=== PATIENT | male | born 1935 | race Two or more races ===

== ENCOUNTER 2020-11-02 17:22 | Inpatient (IN) | payer MEDICARE, BC ==
[~2020-11-02] VITALS: Ht 172.7 cm; Wt 64.0 kg
--- NOTE | 2020-11-02 17:40 | NUR ---
The patient JANIYA APA [id number] From [facility] "Ulcers/occluded RLE. Responsive to his name by opening eyes. Respiration regular and unlabored. Attached to the monitor.
[2020-11-02] MEDS ORDERED: CRAN3875 PO (18:03)
[2020-11-02] MEDS ORDERED: QUERCETIN PO (18:03)
[2020-11-02] MEDS ORDERED: METO25TA6 PO (18:03)
[2020-11-02] MEDS ORDERED: DIGO125T PO (18:03)
[2020-11-02] MEDS ORDERED: MAGN400O6 PO (18:03)
[2020-11-02] MEDS ORDERED: ASCO500C17 PO (18:03)
[2020-11-02] MEDS ORDERED: CHOL200013 PO (18:03)
[2020-11-02] MEDS ORDERED: INSU100V3 IJ (18:03)
[2020-11-02] MEDS ORDERED: MULT-447 PO (18:03)
[2020-11-02] MEDS ORDERED: APIX2.5T PO (18:03)
[2020-11-02] MEDS ORDERED: MAG30ORA PO (18:03)
[2020-11-02] MEDS ORDERED: DEXT15DR6 OP (18:03)
[2020-11-02] MEDS ORDERED: INSU100V7 SQ (18:03)
[2020-11-02] MEDS ORDERED: AMIN887L PO (18:03)
[2020-11-02] MEDS ORDERED: FERR325T23 PO (18:03)
[2020-11-02] MEDS ORDERED: ACET325T53 PO ×2 (18:03)
[2020-11-02] MEDS ORDERED: NA P133E RC (18:03)
--- NOTE | 2020-11-02 18:32 | NUR ---
COVID SWAB DONE AND SENT TO THE LAB
[2020-11-02 18:36] LABS: LYMPHOCYTES # (AUTO) 1.3 K/uL (0.8-4.8); MONOCYTES # (AUTO) 0.7 K/uL (0.1-1.30); NEUTROPHILS # (AUTO) 7.9 K/uL (1.8-8.9)
[2020-11-02 18:39] LABS: BASOPHILS # (AUTO) 0.1 K/uL (0.0-0.2); BASOPHILS % (AUTO) 0.6 % (0.0-2.0); EOSINOPHILS % (AUTO) 0.7 % (0.0-6.0); HEMATOCRIT 25 % (39-51); HEMOGLOBIN 8.2 g/dL (13.5-17.5); LYMPHOCYTES % (AUTO) 12.9 % (20.0-44.0); MEAN CORPUSCULAR HGB CONC 32 g/dl (31.0-36.0); MEAN CORPUSCULAR VOLUME 93 fL (80-96); MONOCYTES % (AUTO) 7.4 % (2.0-12.0); NEUTROPHILS % (AUTO) 78.4 % (43.0-81.0); PLATELET COUNT (AUTO) 436 K/uL (150-450); RED BLOOD CELL COUNT(AUTO) 2.73 MIL/uL (4.5-6.0); WHITE BLOOD COUNT (AUTO) 10.1 K/uL (4.3-11.0)
[2020-11-02 19:12] LABS: CALCIUM, SERUM 8.2 mg/dL (8.5-10.1); CARBON DIOXIDE 31 mmol/L (21-32); CHLORIDE 100 mmol/L (98-107); GLUCOSE 71 mg/dL (74-106); POTASSIUM 4.5 mmol/L (3.5-5.1); SODIUM SERUM 133 mmol/L (136-145); UREA NITROGEN, BLOOD 36 mg/dL (7-18)
--- NOTE | 2020-11-02 19:25 | NUR ---
ELLE DC, CURRENTLY SPEAKING WITH DR. SCHAFER.
[2020-11-02] MEDS ORDERED: IV NS 0.9% 500 ML BAG IV ONE ×2 (19:30→21:30)
[2020-11-02] MEDS ORDERED: VANCOMYCIN 1 GM in IV D5W 250 ML IV ONE (19:30)
--- NOTE | 2020-11-02 20:19 | NUR ---
ROOM 113-1
[2020-11-02] MEDS ORDERED: VANCOMYCIN 1 GM VIAL ONE (20:27)
--- NOTE | 2020-11-02 21:00 | NUR ---
Paged dr Watson to update about Pt being given 20mg of Cardizem for AFIb
--- NOTE | 2020-11-02 21:06 | NUR ---
gave report to Jayne Curran for jarod
--- NOTE | 2020-11-02 21:06 | NUR ---
Diandra munoz in [facility] - 11/02/20 at 2209 by KITA gave report to savita
[2020-11-02] MEDS ORDERED: ENOXAPARIN SODIUM 60 MG/0.6 ML DISP.SYRIN SQ STA (21:28)
[2020-11-02] MEDS ORDERED: DILTIAZEM HCL 50 MG IV IV ONE ×2 (21:30)
[2020-11-02] MEDS ORDERED: ENOXAPARIN SODIUM 60 MG/0.6 ML DISP.SYRIN SQ ONE (21:32)
[2020-11-02] MEDS ORDERED: DILTIAZEM HCL 50 MG IV ONE (21:33)
[2020-11-02] MEDS ORDERED: MAGNESIUM HYDROXIDE 30 ML UDC PO PRN (23:00)
[2020-11-02] MEDS ORDERED: ACETAMINOPHEN 325 MG TABLET PO PRN (23:00)
[2020-11-02] MEDS ORDERED: ZOLPIDEM TARTRATE 5 MG TABLET PO PRN (23:00)
[2020-11-02] MEDS ORDERED: Z GUARD REMEDY 2 OZ OINT TP PRN (23:00)
[2020-11-02] MEDS ORDERED: MAG HYDROX/AL HYDROX/SIMETH 30 ML UDC PO PRN (23:00)
[2020-11-02] MEDS ORDERED: ONDANSETRON HCL/PF 4 MG/2 ML VIAL IVP PRN (23:00)
[2020-11-03] VITALS: BP 97/38
[2020-11-03] MEDS ORDERED: MAGNESIUM HYDROXIDE 30 ML UDC PO PRN
[2020-11-03] MEDS ORDERED: DEXTROSE 50%-WATER 50 ML DISP.SYRIN IV PRN
[2020-11-03] MEDS ORDERED: INSULIN REGULAR, HUMAN 100 UNIT/ML 3 ML VIAL SQ PRN (00:30)
[2020-11-03] MEDS ORDERED: ACETAMINOPHEN 325 MG TABLET PO PRN (00:30)
[2020-11-03] MEDS: INSULIN GLARGINE, 100 UNIT/ML CARTRIDGE SQ SCH ×2 (00:56→22:25)
[2020-11-03] MEDS: IV NS 0.9% 1,000 ML IV PRN ×2 (01:04→12:50)
[2020-11-03] MEDS: METOPROLOL TARTRATE 50 MG TABLET PO SCH ×3 (01:11→20:10)
[2020-11-03 05:29] VITALS: BP 92/52
[2020-11-03 05:52] LABS: BASOPHILS % (AUTO) 0.3 % (0.0-2.0); EOSINOPHILS % (AUTO) 0.8 % (0.0-6.0); HEMATOCRIT 22 % (39-51); HEMOGLOBIN 7.4 g/dL (13.5-17.5); LYMPHOCYTES # (AUTO) 1.2 K/uL (0.8-4.8); LYMPHOCYTES % (AUTO) 12.5 % (20.0-44.0); MEAN CORPUSCULAR HGB CONC 34 g/dl (31.0-36.0); MEAN CORPUSCULAR VOLUME 92 fL (80-96); MONOCYTES # (AUTO) 0.6 K/uL (0.1-1.30); MONOCYTES % (AUTO) 6.2 % (2.0-12.0); NEUTROPHILS # (AUTO) 7.6 K/uL (1.8-8.9); NEUTROPHILS % (AUTO) 80.2 % (43.0-81.0); PLATELET COUNT (AUTO) 402 K/uL (150-450); RED BLOOD CELL COUNT(AUTO) 2.39 MIL/uL (4.5-6.0); WHITE BLOOD COUNT (AUTO) 9.4 K/uL (4.3-11.0)
--- NOTE | 2020-11-03 06:16 | NUR ---
Patient was admitted last night from the ER from [facility] DX Lt leg arterial ischemia left foot swollen 2+ warm to touch Painful to pt when touched pulls away and yells multiple pressure sores large open pressure sacral area right hand between fingers pointer and middle gauze placed between fingers and gauze in his palm and fingers yells out when lifting the right fingers ever so gently he is aLERT orientated x2 name and place (hospital) wound consult order placed
[2020-11-03 06:49] LABS: CALCIUM, SERUM 7.8 mg/dL (8.5-10.1); CREATININE 1.1 mg/dL (0.6-1.3); PHOSPHORUS 2.8 mg/dL (2.5-4.9); POTASSIUM 4.7 mmol/L (3.5-5.1)
--- NOTE | 2020-11-03 07:25 | NUR ---
RN OPENING NOTES RECEIVED PT AWAKE, A/O X1-2. ON 2L O2 VIA NC. NO SOB OR ANY S/S OF RESPIRATORY DISTRESS. IV ACCESS ON L AC #20 INTACT AND PATENT. RUNNING NS @100ML/HR, INFUSING WELL. ON PUREED DIET. HUITRON CATH IN PLACE. SACRAL WOUND NOTED, DRESSINGS CLEAN, DRY AND INTACT. NO PAIN REPORTED AT THIS TIME. SAFETY MEASURES IN PLACE. CALL LIGHT WITHIN REACH. BED LOCKED AND IN LOWEST POSITION WITH SIDE RAILS UP X3. WILL CONTINUE TO MONITOR.
[2020-11-03] MEDS ORDERED: BLOOD SUGAR DIAGNOSTIC 1 EACH STRIP IN SCH (07:30)
[2020-11-03 08:00] VITALS: BP 109/53
[2020-11-03] MEDS ORDERED: APIXABAN 2.5 MG TABLET PO SCH (09:00)
[2020-11-03] MEDS ORDERED: Medication Not On Formulary EA ([Quercetin] 500 MG) PO SCH (09:00)
[2020-11-03] MEDS ORDERED: AMIODARONE 150 MG in IV D5W 100 ML IV ONE (09:00)
[2020-11-03] MEDS ORDERED: SULFAMETH/TRIMETH 800/160 MG 1 UDTAB TABLET PO SCH (09:00)
[2020-11-03] MEDS ORDERED: METOPROLOL TARTRATE 25 MG TABLET PO SCH (09:00)
[2020-11-03] MEDS ORDERED: AMIODARONE 450 MG in IV D5W 250 ML IV PRN (09:00)
[2020-11-03 09:22] LABS: IRON, SERUM 15 ug/dl (50-175); TOTAL IRON BINDING CAPACITY 86 ug/dl (250-450)
[2020-11-03] MEDS: ASCORBIC ACID 500 MG TABLET PO SCH (09:22)
[2020-11-03] MEDS: CHOLECALCIFEROL 1,000 UNIT TABLET (VIT D3) PO SCH (09:22)
[2020-11-03] MEDS: MULTIVIT W/MINERALS 1 TAB TABLET PO SCH (09:22)
[2020-11-03] MEDS: DIGOXIN 0.125 MG TABLET PO SCH (09:23)
[2020-11-03] MEDS: APIXABAN 2.5 MG TABLET PO SCH ×2 (09:25→17:20)
[2020-11-03] MEDS: POLYVINYL ALCOHOL 15 ML BOTTLE OP SCH ×3 (09:26→17:19)
[2020-11-03] MEDS ORDERED: AMIODARONE 450 MG in IV D5W 241 ML IV PRN (09:30)
[2020-11-03 09:45] LABS: CHOLESTEROL 107 mg/dL (<200); FERRITIN 839 ng/mL (8-388); HDL CHOLESTEROL 24 mg/dL (40-60); LDL 68 mg/dL (0-99); THYROID STIMULATING HORMONE 0.575 uIU/mL (0.358-3.74); TRIGLYCERIDES 51 mg/dL (30-150)
[2020-11-03] MEDS: VANCOMYCIN 0.75 GM in IV D5W 250 ML IV SCH ×2 (09:49→20:06)
[2020-11-03] MEDS: INSULIN REGULAR, HUMAN 100 UNIT/ML 3 ML VIAL SQ PRN ×3 (10:03→18:32)
[2020-11-03] MEDS: BLOOD SUGAR DIAGNOSTIC 1 EACH STRIP IN SCH ×4 (10:03→22:19)
[2020-11-03 12:00] VITALS: BP 95/57
[2020-11-03 16:00] VITALS: BP 105/53
--- NOTE | 2020-11-03 17:30 | NUR ---
RN NOTES ACCU CHECK RESULTED 98, NO INSULIN COVERAGE
--- NOTE | 2020-11-03 19:17 | NUR ---
RN CLOSING NOTES NO SIGNIFICANT CHANGES THROUGHOUT THE SHIFT. NO SOB OR ANY DISTRESS. NO PAIN REPORTED. ALL DUE MEDS GIVEN. NEEDS ATTENDED. KEPT CLEAN AND COMFORTABLE. SAFETY MEASURES IN PLACE. ENDORSED TO NIGHT RN FOR MARISSA.
--- NOTE | 2020-11-03 19:30 | NUR ---
JUDICIAL REGISTRAR OPENING NOTE RECEIVED PT AWAKE IN BED. A/O X1-2. PT ON 2L O2 VIA NC SATS 98%. NO SOB OR ANY S/S OF RESPIRATORY DISTRESS. PT ON EXTERNAL MODEL AND MOLD MAKER READING CONTROLLED AFIB AT 93 BPM. PT HAS NO C/O PAIN OR DISCOMFORT AT THIS TIME. IV ACCESS IN LEFT AC #20, INFUSING NS @100 ML/HR, INTACT AND PATENT. HUITRON CATH IN PLACE DRAINING CLEAR YELLOW URINE. SACRAL WOUND NOTED, DRESSINGS CLEAN, DRY AND INTACT. SAFETY MEASURES MAINTAINED. BED IN LOWEST LOCKED POSITION, HOB ELEVATED, SIDE RAILS UP X3. CALL LIGHT AND TABLE WITHIN REACH. WILL CONTINUE WITH PLAN OF CARE.
[2020-11-03 20:00] VITALS: BP 104/53
[2020-11-03] MEDS ORDERED: INSULIN GLARGINE, 100 UNIT/ML CARTRIDGE SQ SCH (22:00)
[2020-11-04] VITALS: BP 110/52
[2020-11-04 04:00] VITALS: BP 114/72
--- NOTE | 2020-11-04 06:15 | NUR ---
HEMOTHERAPIST CLOSING NOTE PT IS IN BED WITH EYES CLOSED, AROUSABLE TO STIMULATION. A/O X1-2. PT ON 2L O2 VIA NC SATS 96%. NO SOB OR ANY S/S OF RESPIRATORY DISTRESS. PT ON EXTERNAL GRASSLAND CONSERVATIONIST READING CONTROLLED AFIB AT 76 BPM. IV ACCESS IS INTACT, PATENT, AND FLUSHING WELL. HUITRON CATH IN PLACE DRAINING CLEAR YELLOW URINE WITH 900 ML OUTPUT. ALL NEEDS HAVE BEEN MET. WOUND CARE ADMINISTERED PER ORDER. PT REPOSITIONED Q2H AND PRN. ALL SAFETY PRECAUTIONS MAINTAINED AT ALL TIMES. BED IN LOWEST LOCKED POSITION, HOB ELEVATED, SIDE RAILS UP X3, BED ALARM ON. CALL LIGHT AND TABLE WITHIN REACH. WILL ENDORSE TO ONCOMING NURSE FOR MARISSA.
[2020-11-04 07:19] LABS: BASOPHILS % (AUTO) 0.3 % (0.0-2.0); EOSINOPHILS % (AUTO) 2.8 % (0.0-6.0); HEMATOCRIT 24 % (39-51); HEMOGLOBIN 7.9 g/dL (13.5-17.5); LYMPHOCYTES # (AUTO) 1.1 K/uL (0.8-4.8); LYMPHOCYTES % (AUTO) 10.6 % (20.0-44.0); MEAN CORPUSCULAR HGB CONC 33 g/dl (31.0-36.0); MEAN CORPUSCULAR VOLUME 93 fL (80-96); MONOCYTES # (AUTO) 0.5 K/uL (0.1-1.30); MONOCYTES % (AUTO) 4.4 % (2.0-12.0); NEUTROPHILS # (AUTO) 8.7 K/uL (1.8-8.9); NEUTROPHILS % (AUTO) 81.9 % (43.0-81.0); PLATELET COUNT (AUTO) 471 K/uL (150-450); WHITE BLOOD COUNT (AUTO) 10.6 K/uL (4.3-11.0)
[2020-11-04 07:32] LABS: ALANINE AMINOTRANSFERASE 12 U/L (12-78); ALKALINE PHOSPHATASE 124 U/L (46-116); ASPARTATE AMINOTRANSFERASE 17 U/L (15-37); BILIRUBIN,TOTAL 0.3 mg/dL (0.2-1.0); CALCIUM, SERUM 8.2 mg/dL (8.5-10.1); CARBON DIOXIDE 30 mmol/L (21-32); CHLORIDE 106 mmol/L (98-107); GLUCOSE 67 mg/dL (74-106); POTASSIUM 4.9 mmol/L (3.5-5.1); SODIUM SERUM 138 mmol/L (136-145); TOTAL PROTEIN, SERUM 6.7 g/dL (6.4-8.2); UREA NITROGEN, BLOOD 20 mg/dL (7-18)
[2020-11-04 07:40] LABS: ALBUMIN 1.4 g/dL (3.4-5.0)
[2020-11-04 08:00] VITALS: BP 130/79
--- NOTE | 2020-11-04 08:00 | NUR ---
manager telemetry note patient in bed alert oriented, on 2l nc ,no sob noted at this time, on tel monitor afib hr 78, bed in lowest and locked position , fed by meat and seafood clerk , as ordered ,swallow eval per mariela johnston, callight within reach , on ivf as ordered ,will monitor
[2020-11-04] MEDS: BLOOD SUGAR DIAGNOSTIC 1 EACH STRIP IN SCH ×4 (08:18→21:18)
[2020-11-04] MEDS: MULTIVIT W/MINERALS 1 TAB TABLET PO SCH (08:21)
[2020-11-04] MEDS: ASCORBIC ACID 500 MG TABLET PO SCH (08:21)
[2020-11-04] MEDS: CHOLECALCIFEROL 1,000 UNIT TABLET (VIT D3) PO SCH (08:21)
[2020-11-04] MEDS: METOPROLOL TARTRATE 50 MG TABLET PO SCH ×2 (08:22→20:33)
[2020-11-04] MEDS: DIGOXIN 0.125 MG TABLET PO SCH (08:22)
[2020-11-04] MEDS: APIXABAN 2.5 MG TABLET PO SCH ×2 (08:23→16:38)
[2020-11-04] MEDS: POLYVINYL ALCOHOL 15 ML BOTTLE OP SCH ×3 (08:24→16:39)
[2020-11-04] MEDS: VANCOMYCIN 0.75 GM in IV D5W 250 ML IV SCH ×2 (09:41→20:32)
[2020-11-04] MEDS: IV NS 0.9% 1,000 ML IV PRN ×2 (11:14→21:24)
[2020-11-04 12:00] VITALS: BP 101/52
--- NOTE | 2020-11-04 12:00 | NUR ---
television news reporter note seen by foot doctor duplex and arterial study done as ordered ,will monitor
[2020-11-04] MEDS: INSULIN REGULAR, HUMAN 100 UNIT/ML 3 ML VIAL SQ PRN ×3 (12:18→21:20)
[2020-11-04] MEDS: SILVER SULFADIAZINE 50 GM JAR TP SCH ×2 (13:24→16:39)
--- NOTE | 2020-11-04 14:41 | NUR ---
television picture tube rebuilder note wound cx done, tx done lt foot as ordered, keep clean dry
--- NOTE | 2020-11-04 14:48 | NUR ---
television script writer note lt foot x ray done
[2020-11-04 16:00] VITALS: BP 115/60
--- NOTE | 2020-11-04 18:19 | NUR ---
BLENDING PLANT OPERATOR NOTE PATIENT IN BED CONFUSED ON 2L NC NO SOB NOTED, ON TELE MONITOR AFIB ,HR 110 , TX DONE ON LT FOOT CX OF WOUND TAKEN ORDERED, FED BY SEISMIC INTERPRETER ATE 75%, NEW HL ON LT FA MG 22 INSERTED WITH GOOD BLOOD RETURN , WILL CONT TO MONITOR CLOSELY
[2020-11-04] MEDS: INSULIN GLARGINE, 100 UNIT/ML CARTRIDGE SQ SCH (21:21)
[2020-11-05] VITALS: BP 126/75
[2020-11-05 04:00] VITALS: BP 92/51
--- NOTE | 2020-11-05 07:30 | NUR ---
CLINICAL EDUCATION ACADEMIC COORDINATOR AM NOTE RECEIVED PT AWAKE IN BED. A/O X1-2. PT ON 2L O2 VIA NC SATS 100%. NO SOB OR ANY S/S OF RESPIRATORY DISTRESS. PT ON EXTERNAL DRY PAN OPERATOR READING CONTROLLED AFIB AT 84 BPM. PT HAS NO C/O PAIN OR DISCOMFORT AT THIS TIME. IV ACCESS ION LEFT AC #20, INFUSING NS @100 ML/HR, SITE CLEAR. HUITRON CATH IN PLACE DRAINING CLEAR YELLOW URINE. SACRAL WOUND NOTED, DRESSINGS CLEAN, DRY AND INTACT. SAFETY MEASURES MAINTAINED. BED IN LOWEST LOCKED POSITION, HOB ELEVATED, SIDE RAILS UP X3. CALL LIGHT WITHIN REACH. WILL CONTINUE TP MONITOR.
[2020-11-05 07:35] LABS: CALCIUM, SERUM 7.9 mg/dL (8.5-10.1); CREATININE 0.9 mg/dL (0.6-1.3); POTASSIUM 3.8 mmol/L (3.5-5.1)
[2020-11-05 08:00] VITALS: BP 134/54
[2020-11-05] MEDS: BLOOD SUGAR DIAGNOSTIC 1 EACH STRIP IN SCH ×4 (08:04→22:48)
[2020-11-05] MEDS: DEXTROSE 50%-WATER 50 ML DISP.SYRIN IV PRN (08:10)
--- NOTE | 2020-11-05 08:10 | NUR ---
RN NOTES BLOOD SUGAR 35 PER LABORATORY. ACCUCHECK DONE 31 MG/DL. GAVE D50 WATER. DR. RODARTE NOTIFIED.
--- NOTE | 2020-11-05 08:55 | NUR ---
RN NOTES BLOOD SUGAR RECHECKED AFTER D50 WATER AND BREAKFAST 117 MG/DL.
[2020-11-05] MEDS: VANCOMYCIN 0.75 GM in IV D5W 250 ML IV SCH ×2 (09:17→21:36)
[2020-11-05] MEDS: CHOLECALCIFEROL 1,000 UNIT TABLET (VIT D3) PO SCH (09:27)
[2020-11-05] MEDS: DIGOXIN 0.125 MG TABLET PO SCH (09:29)
[2020-11-05] MEDS: MULTIVIT W/MINERALS 1 TAB TABLET PO SCH (09:29)
[2020-11-05] MEDS: ASCORBIC ACID 500 MG TABLET PO SCH (09:30)
--- NOTE | 2020-11-05 09:30 | NUR ---
RN NOTES DUE MEDS GIVEN
--- NOTE | 2020-11-05 09:30 | NUR ---
RN NOTES DUE MEDS GIVEN
[2020-11-05] MEDS: APIXABAN 2.5 MG TABLET PO SCH ×2 (09:31→17:52)
[2020-11-05] MEDS: MUPIROCIN OINT 2% 22 GM TUBE TP SCH ×2 (09:32→21:38)
[2020-11-05] MEDS: SILVER SULFADIAZINE 50 GM JAR TP SCH ×2 (09:32→17:52)
[2020-11-05] MEDS: POLYVINYL ALCOHOL 15 ML BOTTLE OP SCH ×3 (09:33→17:51)
[2020-11-05] MEDS: METOPROLOL TARTRATE 50 MG TABLET PO SCH ×2 (09:34→21:38)
--- NOTE | 2020-11-05 12:23 | NUR ---
RN NOTES ACCUCHECK: BS 147 MG/DL. NO INSULIN GIVEN AT THIS TIME. PATIENT'S BLOOD SUGAR DROPPED EARLIER AND IS EATING POORLY.
[2020-11-05] MEDS: IV NS 0.9% 1,000 ML IV PRN (13:17)
[2020-11-05 16:00] VITALS: BP 116/57
[2020-11-05] MEDS: GLUCERNA SHAKE 237 ML CAN PO SCH (17:55)
--- NOTE | 2020-11-05 18:55 | NUR ---
MS RN CLOSING NOTE PT RESTING IN BED, CONFUSED, A/O X1-2. PT ON 2L O2 VIA NC SATS 100%. NO SOB OR ANY S/S OF RESPIRATORY DISTRESS. PT HAS NO C/O PAIN OR DISCOMFORT AT THIS TIME. IV ACCESS ON LEFT FA #22, INFUSING NS @100 ML/HR, SITE CLEAR. RAC G 20 FLUSHES WELL. BOTH SITES CLEAR. HUITRON CATH IN PLACE DRAINING CLEAR YELLOW URINE. SACRAL WOUND NOTED, DRESSINGS CLEAN, DRY AND INTACT. SAFETY MEASURES MAINTAINED. BED IN LOWEST LOCKED POSITION, HOB ELEVATED, SIDE RAILS UP X3. CALL LIGHT WITHIN REACH. WILL CONTINUE TO MONITOR. Addendum: 11/05/20 at 1858 by ALESHA MICHAELS RN CORRECTION URINE OUTPUT 800 ML. TURNED AND REPOSITIONED Q 2 HOURS. ALL NEEDS MET AT THIS TIME. WILL ENDORSE TO NEXT SHIFT FOR MARISSA.
[2020-11-05 20:00] VITALS: BP 135/75
--- NOTE | 2020-11-05 20:15 | NUR ---
TRANSFORMER ASSEMBLY SUPERVISOR NOTE PATIENT TRANSFERRED FROM ROOM 113-1, Addendum: 11/06/20 at 0043 by BETY KENDRICK RN RECEIVED PATIENT RM 113-1 ELIZABETH, IN BED AT 1900, A/O X 1, CONFUSED. PATIENT CURRENTLY ON 4L OF OXYGEN SUPPLEMENTATION, SATTING AT 95%. PATIENT HAS A DRESSING PRESENT ON LEFT FOOT, INTACT AND CLEAN. IV FLUIDS INFUSING WELL ON THE L FA 22 G. BREATHING EVEN AND UNLABORED. HUITRON PRESENT WITH YELLOW URINE DRAINING VIA GRAVITY. SAFETY MEASURES IN PLACE: CALL LIGHT WITHIN REACH, BED IN LOCKED AND LOWEST POSITION, SIDE RAILS UP X 3. WILL MONITOR PATIENT CLOSELY. PATIENT TRANSFERRED TO MS UNIT RM 306-2.
[2020-11-05 20:30] VITALS: BP 115/58
[2020-11-05] MEDS: INSULIN GLARGINE, 100 UNIT/ML CARTRIDGE SQ SCH (22:49)
[2020-11-05] MEDS: INSULIN REGULAR, HUMAN 100 UNIT/ML 3 ML VIAL SQ PRN (22:52)
[2020-11-06] MEDS: IV NS 0.9% 1,000 ML IV PRN ×2 (01:30→16:19)
[2020-11-06 06:09] LABS: CREATININE 0.8 mg/dL (0.6-1.3); POTASSIUM 3.7 mmol/L (3.5-5.1)
[2020-11-06] MEDS: DEXTROSE 50%-WATER 50 ML DISP.SYRIN IV PRN (06:23)
--- NOTE | 2020-11-06 07:15 | NUR ---
RN CLOSING NOTE LAB CALLED AT 06:20 REGARDING CRITICAL VALUE OF BS 30 MG/DL, LETHARGIC. ADMINISTERED D50 TO INCREASE BS, 0653 BLOOD GLUCOSE WAS 162 MG/DL. PATIENT NOW AWAKE AND ALERT, STILL REMAINS CONFUSED. GAVE AMBIEN LAST NIGHT TO PROMOTE PATIENT'S REST PATIENT WAS MILDLY IRRITABLE. BREATHING EVEN AND UNLABORED. ALL NEEDS MET AND ATTENDED. ALL ORDERS CARRIED OUT. ENDORSED TO DAY SHIFT NURSE FOR MARISSA.
[2020-11-06] MEDS: BLOOD SUGAR DIAGNOSTIC 1 EACH STRIP IN SCH ×4 (07:22→21:44)
--- NOTE | 2020-11-06 07:24 | NUR ---
MS RN OPENING NOTE RECEIVED PATIENT LYING IN BED, RESTING. EASY TO AROUSE. A/O X1 - CONFUSED. ON 2L O2 VIA NASAL CANNULA - NO SOB OR ANY S/S OF RESPIRATORY DISTRESS. NO PAIN NOTED AT THIS TIME. IV ACCESS TO RIGHT FA #22 - RUNNING NS @100 ML/HR. HUITRON CATH IN PLACE DRAINING CLEAR YELLOW URINE. MULTIPLE SKIN ISSUES NOTED - DRESSINGS CLEAN, DRY AND INTACT. SAFETY MEASURES IMPLEMENTED. CALL LIGHT WITHIN REACH. WILL CONTINUE TO MONITOR.
[2020-11-06 08:00] VITALS: BP 107/64
[2020-11-06] MEDS: GLUCERNA SHAKE 237 ML CAN PO SCH ×2 (08:00→16:02)
[2020-11-06] MEDS: MULTIVIT W/MINERALS 1 TAB TABLET PO SCH (08:20)
[2020-11-06] MEDS: CHOLECALCIFEROL 1,000 UNIT TABLET (VIT D3) PO SCH (08:20)
[2020-11-06] MEDS: ASCORBIC ACID 500 MG TABLET PO SCH (08:20)
[2020-11-06] MEDS: APIXABAN 2.5 MG TABLET PO SCH ×2 (08:22→16:09)
[2020-11-06] MEDS: DIGOXIN 0.125 MG TABLET PO SCH (08:25)
[2020-11-06] MEDS: METOPROLOL TARTRATE 50 MG TABLET PO SCH ×2 (08:26→21:00)
--- NOTE | 2020-11-06 08:26 | NUR ---
BP 107/64 - HELD METOPROLOL
[2020-11-06] MEDS: SILVER SULFADIAZINE 50 GM JAR TP SCH ×2 (08:27→16:04)
[2020-11-06] MEDS: POLYVINYL ALCOHOL 15 ML BOTTLE OP SCH ×3 (08:27→16:04)
[2020-11-06] MEDS: MUPIROCIN OINT 2% 22 GM TUBE TP SCH ×2 (08:28→21:20)
[2020-11-06] MEDS: VANCOMYCIN 0.75 GM in IV D5W 250 ML IV SCH ×2 (08:33→21:16)
--- NOTE | 2020-11-06 10:12 | NUR ---
WOUND CARE CONSULT: DIFFICULT ASSESSMENT DUE TO PT BECOMING RIGID AND RESISTANT TO MOVING. 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 SURGICAL CONSULT MADE TO DR HATHAWAY. RECOMMENDATIONS MADE FOR SKIN PROTECTION AND DISCUSSED WITH NURSING STAFF. PT IS ON AGNIESZKA ISOFLEX LOW AIRLOSS BED. IN AGREEMENT WITH PLAN OF CARE. Addendum: 11/06/20 at 1018 by DAVID RAMIREZ WNDNU Amended: Links added.
[2020-11-06] MEDS: DAKINS QUARTER STRENGTH (0.125%) 480 ML BOTTLE TOP SCH (12:27)
[2020-11-06] MEDS: THERAHONEY GEL 1.5 OZ TUBE TP SCH (12:27)
[2020-11-06 16:00] VITALS: BP 129/94
--- NOTE | 2020-11-06 17:47 | NUR ---
BLOOD SUGAR @ 140 - NO INSULIN GIVEN. WILL CONTINUE TO MONITOR. CHARGE NURSE AWARE.
--- NOTE | 2020-11-06 20:00 | NUR ---
MS RN OPENING NOTE PATIENT A/OX1; IN BED, CONFUSED. TOLERATING O2 4LPM VIA N/C WELL WITH NO SOB. NO S/SX OF PAIN AT THIS TIME. RFA #20G NS @ 100ML/HR; PATENT AND INTACT. F/C DRAINING CLEAR YELLOW URINE; PATENT AND INTACT. SAFETY MEASURES IN PLACE: BED TO LOWEST LOCKED POSITION, SIDE RAILS UPX2, CALL LIGHT WITHIN EASY REACH, BED ALARM ON. PATIENT IN STABLE CONDITION WILL CONTINUE PLAN OF CARE.
[2020-11-06 20:19] VITALS: BP 105/71
--- NOTE | 2020-11-06 21:45 | NUR ---
MS RN NOTE PATIENT'S BLOOD SUGAR WAS 95. NOTIFIED PASQUAL WITH ORDERS TO RECHECK BS AT 0200 AND AM.
[2020-11-06] MEDS: INSULIN GLARGINE, 100 UNIT/ML CARTRIDGE SQ SCH (22:00)
[2020-11-06] MEDS: INSULIN REGULAR, HUMAN 100 UNIT/ML 3 ML VIAL SQ PRN (22:57)
--- NOTE | 2020-11-07 02:10 | NUR ---
MS RN Notes Patient's blood sugar at 0205 was 74mg/dL. Will continue to monitor the patient.
[2020-11-07] MEDS: IV NS 0.9% 1,000 ML IV PRN (05:11)
--- NOTE | 2020-11-07 06:15 | NUR ---
MS NGUYEN Notes Patient's blood sugar at 605 was 66 mg/dL. Will continue to monitor the patient. Addendum: 11/07/20 at 705 by EFRAIN GROSSAMN RN MS NGUYEN Notes Dr. Milligan was notified of this blood sugar and the blood sugar of [address] Milligan gave orders to hold all insulin until blood sugar stabilizes again, have accuchecks every 4 hours, and have D5NS at 75 mL/hr ordered.
[2020-11-07 07:04] LABS: CALCIUM, SERUM 8.1 mg/dL (8.5-10.1); CREATININE 0.9 mg/dL (0.6-1.3); POTASSIUM 4.3 mmol/L (3.5-5.1)
--- NOTE | 2020-11-07 07:31 | NUR ---
MS RN CLOSING NOTE PATIENT A/OX1; IN BED, CONFUSED. TOLERATING O2 3LPM VIA N/C WELL WITH NO SOB. NO S/SX OF PAIN AT THIS TIME. RFA #20G, WHICH IS PATENT AND INTACT. F/C DRAINING CLEAR YELLOW URINE; PATENT AND INTACT. SAFETY MEASURES IN PLACE: BED TO LOWEST LOCKED POSITION, SIDE RAILS UPX3, CALL LIGHT WITHIN EASY REACH, AND BED ALARM ON. PATIENT IN STABLE CONDITION. ENDORSED CARE TO THE DAY SHIFT NURSE.
[2020-11-07] MEDS: GLUCERNA SHAKE 237 ML CAN PO SCH ×2 (08:00→17:00)
[2020-11-07] MEDS: VANCOMYCIN 0.75 GM in IV D5W 250 ML IV SCH (08:52)
[2020-11-07] MEDS: BLOOD SUGAR DIAGNOSTIC 1 EACH STRIP IN SCH ×4 (09:30→21:43)
[2020-11-07] MEDS: APIXABAN 2.5 MG TABLET PO SCH ×2 (10:23→17:20)
[2020-11-07] MEDS: MULTIVIT W/MINERALS 1 TAB TABLET PO SCH (10:27)
[2020-11-07] MEDS: CHOLECALCIFEROL 1,000 UNIT TABLET (VIT D3) PO SCH (10:27)
[2020-11-07] MEDS: ASCORBIC ACID 500 MG TABLET PO SCH (10:27)
[2020-11-07] MEDS: THERAHONEY GEL 1.5 OZ TUBE TP SCH (10:28)
[2020-11-07] MEDS: MUPIROCIN OINT 2% 22 GM TUBE TP SCH ×2 (10:29→21:45)
[2020-11-07] MEDS: POLYVINYL ALCOHOL 15 ML BOTTLE OP SCH ×3 (10:29→17:13)
[2020-11-07] MEDS: SILVER SULFADIAZINE 50 GM JAR TP SCH ×2 (10:29→17:13)
[2020-11-07] MEDS: DIGOXIN 0.125 MG TABLET PO SCH (10:31)
[2020-11-07] MEDS: METOPROLOL TARTRATE 50 MG TABLET PO SCH ×2 (10:31→21:44)
[2020-11-07] MEDS: DAKINS QUARTER STRENGTH (0.125%) 480 ML BOTTLE TOP SCH (10:33)
[2020-11-07] MEDS: IV D5/ 0.9% NACL 1,000 ML IV PRN ×2 (10:50→22:36)
[2020-11-07 16:00] VITALS: BP 121/65
[2020-11-07 20:00] VITALS: BP 123/73
--- NOTE | 2020-11-07 20:00 | NUR ---
RN NOTES Received patient sleeping but arousable, a/ox1, not in distress f/c draining clear yellow urine, not in distress, no pain noted, siderailsupx2, will continue to monitor
--- NOTE | 2020-11-07 20:30 | NUR ---
RN NOTES Patient went down for CT scan, accompanied by our TELEVISION EQUIPMENT OPERATOR
--- NOTE | 2020-11-07 21:00 | NUR ---
RN NOTES PT. IV got infiltrated, new IV line inserted on the right upper arm gauge #20
[2020-11-07] MEDS: DOXYCYCLINE HYCLATE (100 MG) 100 MG TABLET PO SCH (21:44)
--- NOTE | 2020-11-07 23:00 | NUR ---
RN NOTES Spoke to DR. Stringer and informed him regarding patient Blood sugar of 246,Dr. Watson ordered to discontinue Accu check Q4HRS and order Accu -check Q6HRS. and ordered mild sliding scale, order noted and carried out
[2020-11-07] MEDS ORDERED: DEXTROSE 50%-WATER 50 ML DISP.SYRIN IV PRN (23:30)
[2020-11-08] MEDS: BLOOD SUGAR DIAGNOSTIC 1 EACH STRIP IN SCH ×5 (00:08→23:48)
[2020-11-08] MEDS: INSULIN REGULAR, HUMAN 100 UNIT/ML 3 ML VIAL SQ PRN ×4 (00:09→23:49)
[2020-11-08 06:02] LABS: CREATININE 0.9 mg/dL (0.6-1.3); POTASSIUM 4.2 mmol/L (3.5-5.1)
[2020-11-08 06:16] LABS: CALCIUM, SERUM 8.2 mg/dL (8.5-10.1)
--- NOTE | 2020-11-08 06:22 | NUR ---
RN NOTES SLEEPING BUT AROUSABLE, NOT IN DISTRESS, NO PAIN NOTED, SIDERAILSUPX2, MORNING CARE RENDERED, PT. NEEDS ATTENDED
--- NOTE | 2020-11-08 07:54 | NUR ---
RN OPENING NOTE RECEIVED PATIENT IN BED. A/O X1-2. NC ON 3 LPM. NO SOB NOTED. IN NO APPARENT DISTRESS. IV ACCESS ON LAKSHMI #20 G, INTACT AND PATENT, D5NS CURRENTLY RUNNING AT 75 ML/HR. SAFETY MEASURES MAINTAINED. BED IN LOWEST POSITION, BRAKES LOCKED. SIDE RAILS UP X2. CALL LIGHT WITHIN REACH. WILL CONTINUE PLAN OF CARE.
[2020-11-08 08:00] VITALS: BP 128/65
[2020-11-08] MEDS: MULTIVIT W/MINERALS 1 TAB TABLET PO SCH (09:08)
[2020-11-08] MEDS: CHOLECALCIFEROL 1,000 UNIT TABLET (VIT D3) PO SCH (09:08)
[2020-11-08] MEDS: DIGOXIN 0.125 MG TABLET PO SCH (09:08)
[2020-11-08] MEDS: ASCORBIC ACID 500 MG TABLET PO SCH (09:09)
[2020-11-08] MEDS: DOXYCYCLINE HYCLATE (100 MG) 100 MG TABLET PO SCH (09:09)
[2020-11-08] MEDS: METOPROLOL TARTRATE 50 MG TABLET PO SCH ×2 (09:09→20:32)
[2020-11-08] MEDS: APIXABAN 2.5 MG TABLET PO SCH ×2 (09:10→16:09)
[2020-11-08] MEDS: MUPIROCIN OINT 2% 22 GM TUBE TP SCH ×2 (09:16→20:33)
[2020-11-08] MEDS: DAKINS QUARTER STRENGTH (0.125%) 480 ML BOTTLE TOP SCH (09:16)
[2020-11-08] MEDS: SILVER SULFADIAZINE 50 GM JAR TP SCH ×2 (09:16→16:11)
[2020-11-08] MEDS: THERAHONEY GEL 1.5 OZ TUBE TP SCH (09:17)
[2020-11-08] MEDS: POLYVINYL ALCOHOL 15 ML BOTTLE OP SCH ×3 (09:17→16:10)
[2020-11-08] MEDS: GLUCERNA SHAKE 237 ML CAN PO SCH ×2 (09:22→16:09)
[2020-11-08] MEDS: VANCOMYCIN 0.75 GM in IV D5W 250 ML IV SCH (12:14)
--- NOTE | 2020-11-08 12:14 | NUR ---
RN NOTE VANCO IV NOT ADMINISTERED. VANCO THROUGH IS 31
[2020-11-08] MEDS: IV D5/ 0.9% NACL 1,000 ML IV PRN (14:27)
[2020-11-08] MEDS: CEFTRIAXONE 1 G in IV D5W 50 ML IV SCH (14:28)
[2020-11-08 16:00] VITALS: BP 104/56
--- NOTE | 2020-11-08 18:12 | NUR ---
RN CLOSING NOTE PATIENT IN BED. A/O X1. NC ON 3 LPM. NO SOB NOTED. NO S/S OF RESPIRATORY DISTRESS. IV ACCESS ON LAKSHMI #20 G, INTACT AND PATENT, D5NS CURRENTLY RUNNING AT 75 ML/HR. HUITRON CATH IN PLACE, DRANINING YELLOW URINE, 400 CC OUTPUT. ALL DUE MEDS GIVEN ORDERED. WOUND TREATMENT ORDERED. INSULIN GIVEN PER PROTOCOL. TURNED EVERY Q2. SAFETY MEASURES MAINTAINED. BED IN LOWEST POSITION, BRAKES LOCKED. SIDE RAILS UP X2. KEPT CALL LIGHT WITHIN REACH. WILL ENDORSE CONTINUITY OF CARE TO ONCOMING SHIFT.
--- NOTE | 2020-11-08 19:45 | NUR ---
RN NOTES Received patient awake on his bed, a/ox1, F/C draining clear yellow urine, not in distress, no SOB, bed in locked position, siderailsupx2, will continue to monitor
[2020-11-08 20:00] VITALS: BP 135/90
[2020-11-09] MEDS: VANCOMYCIN 0.75 GM in IV D5W 250 ML IV SCH ×2 (01:22→12:06)
[2020-11-09] MEDS: IV D5/ 0.9% NACL 1,000 ML IV PRN (05:39)
[2020-11-09] MEDS: BLOOD SUGAR DIAGNOSTIC 1 EACH STRIP IN SCH ×4 (06:02→23:50)
--- NOTE | 2020-11-09 06:34 | NUR ---
RN NOTES AWAKE, MORNING CARE RENDERED, NO PAIN NOTED, NO SOB, SIDERILUPS2, PT. NEEDS ATTENDED
[2020-11-09 06:37] LABS: CALCIUM, SERUM 7.9 mg/dL (8.5-10.1); POTASSIUM 4.4 mmol/L (3.5-5.1)
--- NOTE | 2020-11-09 07:25 | NUR ---
RN NOTES PATIENT RESTING IN BED, AWAKE AND VERBALLY RESPONSIVE. A/OX1, ABLE TO MAKE SIMPLE NEEDS KNOWN. BREATHING EVEN AND UNLABORED, TOLERATING ROOM AIR, NOT IN ACUTE DISTRESS. IVF CONTINUES, INFUSING WELL. SAFETY MEASURES IN PLACE. WILL CONTINUE TO MONITOR.
[2020-11-09] MEDS: GLUCERNA SHAKE 237 ML CAN PO SCH ×2 (08:07→16:56)
[2020-11-09] MEDS: SILVER SULFADIAZINE 50 GM JAR TP SCH ×2 (08:07→16:56)
[2020-11-09] MEDS: THERAHONEY GEL 1.5 OZ TUBE TP SCH (08:07)
[2020-11-09] MEDS: POLYVINYL ALCOHOL 15 ML BOTTLE OP SCH ×3 (08:08→16:56)
[2020-11-09] MEDS: MUPIROCIN OINT 2% 22 GM TUBE TP SCH ×2 (08:08→20:35)
[2020-11-09 08:41] VITALS: BP 121/74
[2020-11-09] MEDS: CHOLECALCIFEROL 1,000 UNIT TABLET (VIT D3) PO SCH (09:35)
[2020-11-09] MEDS: MULTIVIT W/MINERALS 1 TAB TABLET PO SCH (09:35)
[2020-11-09] MEDS: ASCORBIC ACID 500 MG TABLET PO SCH (09:35)
[2020-11-09] MEDS: METOPROLOL TARTRATE 50 MG TABLET PO SCH ×2 (09:35→20:31)
[2020-11-09] MEDS: APIXABAN 2.5 MG TABLET PO SCH ×2 (09:36→16:49)
[2020-11-09] MEDS: DIGOXIN 0.125 MG TABLET PO SCH (09:36)
[2020-11-09] MEDS: DAKINS QUARTER STRENGTH (0.125%) 480 ML BOTTLE TOP SCH (09:37)
--- NOTE | 2020-11-09 11:10 | NUR ---
RN NOTES PATIENT ABLE TO TOLERATE INTAKE OF CRUSHED MEDICATIONS; NO ASPIRATION NOTED. HOB ELEVATED W/ MEALS AND DURING MEDICATION ADMINISTRATION.
[2020-11-09] MEDS: INSULIN REGULAR, HUMAN 100 UNIT/ML 3 ML VIAL SQ PRN ×2 (11:51→23:52)
[2020-11-09] MEDS: CEFTRIAXONE 1 G in IV D5W 50 ML IV SCH (13:22)
[2020-11-09 16:17] VITALS: BP 124/76
--- NOTE | 2020-11-09 18:39 | NUR ---
RN NOTES PATIENT IN BED RESTING, AWAKE AND VERBALLY RESPONSIVE. BREATHING EVEN AND UNLABORED, CONTINUES ON O2 AT 3LPM, NO RESPIRATORY DISTRESS. WOUND TX ADMINISTERED TODAY; REPOSITIONED FOR COMFORT DURING THE DAY. HUITRON CATH IS INTACT AND DRAINING YELLOW-COLORED URINE. IVF INFUSING WELL. SAFETY MEASURES MAINTAINED. WILL ENDORSE TO MISSILE INSPECTOR RN FOR MARISSA.
--- NOTE | 2020-11-09 19:30 | NUR ---
MS RN OPENING NOTES RECEIVED PATIENT IN BED, AWAKE, A&O X 1. ABLE TO MAKE SIMPLE NEEDS KNOWN, WITH O2 VIA NC AT 2LPM SATURATING WELL AT 96%, NO SOB, IN NO ACUTE DISTRESS NOTED. WITH IV ACCESS ON LAKSHMI, PATENT AND FLUSHES WELL. NO REDNESS NOTED. SAFETY PRECAUTIONS OBSERVED; BED ON LOWEST LOCKED POSITION, KEPT SIDE RAILS UP X 2. KEPT CALL LIGHT WITHIN EASY REACH. WILL CONTINUE TO MONITOR PATIENT'S CURRENT STATUS.
[2020-11-09 20:00] VITALS: BP_SYST 114; BP_DIAS 80; BP_DIAS 87
--- NOTE | 2020-11-10 | NUR ---
RN NOTES PATIENT'S BLOOD SUGAR CHECKED, RESULT OF 191 MG/DL. 3 UNITS OF REGULAR INSULIN GIVEN PER SLIDING SCALE ORDERED.
[2020-11-10] MEDS: VANCOMYCIN 0.75 GM in IV D5W 250 ML IV SCH (01:00)
--- NOTE | 2020-11-10 01:00 | NUR ---
RN NOTES VANCOMYCIN TROUGH RESULT REVIEWED, RESULT 28. HELD 0100 DOSE.
[2020-11-10] MEDS: INSULIN REGULAR, HUMAN 100 UNIT/ML 3 ML VIAL SQ PRN ×3 (05:50→23:36)
[2020-11-10] MEDS: BLOOD SUGAR DIAGNOSTIC 1 EACH STRIP IN SCH ×4 (05:50→23:47)
[2020-11-10] MEDS: IV D5/ 0.9% NACL 1,000 ML IV PRN (05:54)
[2020-11-10 06:14] LABS: BASOPHILS # (AUTO) 0.1 K/uL (0.0-0.2); BASOPHILS % (AUTO) 0.7 % (0.0-2.0); EOSINOPHILS % (AUTO) 2.8 % (0.0-6.0); HEMATOCRIT 23 % (39-51); HEMOGLOBIN 7.4 g/dL (13.5-17.5); LYMPHOCYTES # (AUTO) 1.4 K/uL (0.8-4.8); MEAN CORPUSCULAR HGB CONC 32 g/dl (31.0-36.0); MEAN CORPUSCULAR VOLUME 92 fL (80-96); MONOCYTES # (AUTO) 0.6 K/uL (0.1-1.30); MONOCYTES % (AUTO) 7.6 % (2.0-12.0); NEUTROPHILS # (AUTO) 5.3 K/uL (1.8-8.9); NEUTROPHILS % (AUTO) 69.9 % (43.0-81.0); PLATELET COUNT (AUTO) 476 K/uL (150-450); RED BLOOD CELL COUNT(AUTO) 2.48 MIL/uL (4.5-6.0); WHITE BLOOD COUNT (AUTO) 7.6 K/uL (4.3-11.0)
--- NOTE | 2020-11-10 06:28 | NUR ---
MS RN CLOSING NOTES PATIENT IN BED, AWAKE, A&O X 1. ABLE TO MAKE SIMPLE NEEDS KNOWN, WITH O2 VIA NC AT 2LPM, O2 SAT AT 96%, NO SOB, IN NO ACUTE DISTRESS. WITH IV ACCESS ON LAKSHMI, PATENT AND FLUSHES WELL. NO REDNESS NOTED. WITH FC CONNECTED TO URINE BAD DRAINING CLEAR YELLOW COLORED URINE. SAFETY PRECAUTIONS OBSERVED AND MAINTAINED DURING THE SHIFT; BED ON LOWEST LOCKED POSITION, KEPT SIDE RAILS UP X 2. KEPT CALL LIGHT WITHIN EASY REACH. FREQUENT VISUAL CHECKS DONE. WILL ENDORSE TO MORNING SHIFT NURSE FOR MARISSA.
[2020-11-10 06:38] LABS: CREATININE 1.1 mg/dL (0.6-1.3); MAGNESIUM 1.9 mg/dL (1.8-2.4); PHOSPHORUS 2.7 mg/dL (2.5-4.9); POTASSIUM 3.8 mmol/L (3.5-5.1)
[2020-11-10 08:00] VITALS: BP 114/61
--- NOTE | 2020-11-10 08:05 | NUR ---
MS/RN OPENING NOTES RECEIVED PATIENT IN BED, AWAKE, A&O X 1. ABLE TO MAKE SIMPLE NEEDS KNOWN, WITH O2 VIA NC AT 2LPM. NO SOB, IN NO ACUTE DISTRESS. WITH IV ACCESS ON LAKSHMI, PATENT AND FLUSHES WELL. NO REDNESS NOTED. WITH FC CONNECTED TO URINE BAG DRAINING CLEAR YELLOW URINE. SAFETY PRECAUTIONS OBSERVED AND MAINTAINED DURING THE SHIFT; BED ON LOWEST LOCKED POSITION, KEPT SIDE RAILS UP X 2. KEPT CALL LIGHT WITHIN EASY REACH. WILL CONTINUE TO MONITOR PATIENT.
[2020-11-10] MEDS: CHOLECALCIFEROL 1,000 UNIT TABLET (VIT D3) PO SCH (10:06)
[2020-11-10] MEDS: APIXABAN 2.5 MG TABLET PO SCH ×2 (10:07→17:35)
[2020-11-10] MEDS: DIGOXIN 0.125 MG TABLET PO SCH (10:07)
[2020-11-10] MEDS: METOPROLOL TARTRATE 50 MG TABLET PO SCH ×2 (10:08→21:02)
[2020-11-10] MEDS: ASCORBIC ACID 500 MG TABLET PO SCH (10:08)
[2020-11-10] MEDS: MULTIVIT W/MINERALS 1 TAB TABLET PO SCH (10:08)
[2020-11-10] MEDS: SILVER SULFADIAZINE 50 GM JAR TP SCH ×2 (10:09→17:37)
[2020-11-10] MEDS: DAKINS QUARTER STRENGTH (0.125%) 480 ML BOTTLE TOP SCH (10:10)
[2020-11-10] MEDS: MUPIROCIN OINT 2% 22 GM TUBE TP SCH ×2 (10:10→21:04)
[2020-11-10] MEDS: POLYVINYL ALCOHOL 15 ML BOTTLE OP SCH ×3 (10:10→17:36)
[2020-11-10] MEDS: THERAHONEY GEL 1.5 OZ TUBE TP SCH (10:11)
[2020-11-10] MEDS: GLUCERNA SHAKE 237 ML CAN PO SCH ×2 (10:11→17:36)
[2020-11-10] MEDS ORDERED: CEFT1PIG2 IV (12:08)
[2020-11-10] MEDS ORDERED: SODI473S8 TOP (12:08)
[2020-11-10] MEDS ORDERED: Silver Sulfadiazine TP (12:08)
[2020-11-10] MEDS ORDERED: VANC750P13 IV (12:08)
[2020-11-10] MEDS: CEFTRIAXONE 1 G in IV D5W 50 ML IV SCH (13:35)
--- NOTE | 2020-11-10 19:11 | NUR ---
MS/RN CLOSING NOTES PATIENT IN BED, ASLEEP BUT EASILY AROUSABLE BY VERBAL STIMULI, A&O X 1. ABLE TO MAKE SIMPLE NEEDS KNOWN. CURRENTLY ON ROOM AIR SATURATING WELL. IN NO ACUTE DISTRESS. WITH IV ACCESS ON LAKSHMI WITH A RUNNING D5 NS @75CC/HR. WITH FC CONNECTED TO URINE BAG DRAINING CLEAR YELLOW URINE. SAFETY PRECAUTIONS OBSERVED AND MAINTAINED DURING THE SHIFT; BED ON LOWEST LOCKED POSITION, KEPT SIDE RAILS UP X 2. KEPT CALL LIGHT WITHIN EASY REACH. WILL ENDORSE TO THE NEXT SHIFT FOR CONTINUITY OF CARE.
--- NOTE | 2020-11-10 19:34 | NUR ---
MS RN OPENING NOTE PATIENT A/OX1; SLEEPING IN BED. TOLERATING ROOM AIR WELL WITH NO SOB. NO S/SX OF PAIN OR DISCOMFORT AT THIS TIME. LAKSHMI # 20G INFUSING D5 1/2NS @ 75 ML/HR; PATENT AND INTACT. F/C DRAINING ANNE COLORED URINE; PATENT AND INTACT. SAFETY MEASURES IN PLACE: BED IN LOWEST LOCKED POSITION, SIDE RAILS UPX2, CALL LIGHT WITHIN EASY REACH, BED ALARMS ON. PATIENT IN STABLE CONDITION; WILL CONTINUE PLAN OF CARE.
[2020-11-10 20:00] VITALS: BP 128/72
[2020-11-10] MEDS ORDERED: VANCOMYCIN 0.75 GM in IV D5W 250 ML IV SCH (21:00)
[2020-11-11] MEDS: IV D5/ 0.9% NACL 1,000 ML IV PRN (05:17)
[2020-11-11] MEDS: BLOOD SUGAR DIAGNOSTIC 1 EACH STRIP IN SCH ×2 (06:36→12:57)
--- NOTE | 2020-11-11 07:00 | NUR ---
MS RN CLOSING NOTE PATIENT SLEEPING IN BED. PT STABLE ON RA, NO S/S OF DISTRESS OR SOB NOTED, BREATHING EVEN AND UNLABORED. NO S/SX OF PAIN OR DISCOMFORT AT THIS TIME. LAKSHMI # 20G INFUSING D5NS @ 75 ML/HR. HUITRON CATH PATENT AND INTACT, OUTPUT OF 800 ML. MEDICATIONS GIVEN ORDERED. PATIENT NEEDS MET THROUGHOUT SHIFT. SAFETY MEASURES IN PLACE: BED IN LOWEST LOCKED POSITION, SIDE RAILS UPX2, CALL LIGHT WITHIN EASY REACH, BED ALARMS ON. WILL ENDORSE TO DAY SHIFT NURSE FOR CONTINUITY OF CARE
[2020-11-11 07:41] LABS: CALCIUM, SERUM 8.2 mg/dL (8.5-10.1); CREATININE 1.1 mg/dL (0.6-1.3); POTASSIUM 4.7 mmol/L (3.5-5.1)
--- NOTE | 2020-11-11 07:43 | NUR ---
MS/RN OPENING NOTES RECEIVED PATIENT IN BED, AWAKE, A&O X 1. ON ROOM AIR. IN NO ACUTE DISTRESS. WITH IV ACCESS ON LAKSHMI WITH A RUNNING D5 NS@ 75CC/HR. WITH FC CONNECTED TO URINE BAG DRAINING CLEAR YELLOW URINE. SAFETY PRECAUTIONS OBSERVED AND MAINTAINED. BED ON LOWEST LOCKED POSITION, KEPT SIDE RAILS UP X 2. KEPT CALL LIGHT WITHIN EASY REACH. WILL CONTINUE TO MONITOR PATIENT.
[2020-11-11 08:00] VITALS: BP 104/58
[2020-11-11] MEDS: CHOLECALCIFEROL 1,000 UNIT TABLET (VIT D3) PO SCH (08:21)
[2020-11-11] MEDS: ASCORBIC ACID 500 MG TABLET PO SCH (08:21)
[2020-11-11] MEDS: MULTIVIT W/MINERALS 1 TAB TABLET PO SCH (08:21)
[2020-11-11] MEDS: DIGOXIN 0.125 MG TABLET PO SCH (08:21)
[2020-11-11] MEDS: APIXABAN 2.5 MG TABLET PO SCH (08:22)
[2020-11-11 08:23] VITALS: BP 102/66
[2020-11-11] MEDS: METOPROLOL TARTRATE 50 MG TABLET PO SCH (08:23)
--- NOTE | 2020-11-11 08:24 | NUR ---
MS/RN NOTES LOPRESSOR 50MG PO WITHHELD DUE TO LOW BP OF 102/66. WILL CONTINUE TO MONITOR.
[2020-11-11] MEDS: DAKINS QUARTER STRENGTH (0.125%) 480 ML BOTTLE TOP SCH (08:40)
[2020-11-11] MEDS: THERAHONEY GEL 1.5 OZ TUBE TP SCH (08:40)
[2020-11-11] MEDS: POLYVINYL ALCOHOL 15 ML BOTTLE OP SCH ×2 (08:40→13:55)
[2020-11-11] MEDS: SILVER SULFADIAZINE 50 GM JAR TP SCH (08:41)
[2020-11-11] MEDS: GLUCERNA SHAKE 237 ML CAN PO SCH (08:41)
[2020-11-11] MEDS: MUPIROCIN OINT 2% 22 GM TUBE TP SCH (08:41)
[2020-11-11] MEDS: INSULIN REGULAR, HUMAN 100 UNIT/ML 3 ML VIAL SQ PRN (12:59)
[2020-11-11] MEDS: CEFTRIAXONE 1 G in IV D5W 50 ML IV SCH (13:56)
--- NOTE | 2020-11-11 15:43 | NUR ---
MS/RN NOTES PICC LINE INSERTION DONE BY PICC LINE RN ON RIGHT UPPER ARM, PER DR. DONALD ORDER DUE TO PATIENT HAVING 40 DAYS IV ATB POST DISCHARGE TODAY. APPROVED CONSENT VIA PHONE. PICC LINE CONFIRMED PLACEMENT BY X-RAY.
--- NOTE | 2020-11-11 16:30 | NUR ---
MS/RN DISCHARGED NOTES PATIENT IS MEDICALLY STABLE. MD ORDERED DISCHARGE BACK TO SNF. PATIENT IS ALERT AND ORIENTEDX1, BED BOUND. STABLE ON ROOM AIR. PATIENT IS GOING TO [facility], ENDORSEMENTS AND DISCHARGE INSTRUCTIONS CALLED AND GIVEN TO ANA NGUYEN DIRECTOR HOME HEALTH AT THE FACILITY. PICC LINE ON UPPER RIGHT ARM INTACT AND PATENT. HUITRON CATHETER REMAINED IN PLACE AND DRAINING TO A CLEAR YELLOW URINE. PATIENT WAS PICKED UP BY A NON-EMERGENCY TRANSPORTATION TO BE SENT BACK TO SNF.
[2020-11-11] MEDS ORDERED: VANCOMYCIN 0.75 GM in IV D5W 250 ML IV SCH (21:00)
== END 2020-11-11 17:45 | DRG 981 ==
LOC: ER 17:30 → TELE1 20:41 → MEDSG1 11-05 00:20 → MED 11-05 20:57
PROVIDERS: ADMIT Internal Medicine; ATTEND Internal Medicine
PROC: 0PBT0ZZ Excision of Right Finger Phalanx, Open Approach (ICD-10-PCS; principal; 2020-11-07)
PROC: 0JBJ0ZZ Excision of Right Hand Subcutaneous Tissue and Fascia, Open Approach (ICD-10-PCS; 2020-11-07)
PROC: 0QB10ZZ Excision of Sacrum, Open Approach (ICD-10-PCS; 2020-11-07)
PROC: 02HV33Z Insertion of Infusion Device into Superior Vena Cava, Percutaneous Approach (ICD-10-PCS; 2020-11-11)
PROC: B548ZZA Ultrasonography of Superior Vena Cava, Guidance (ICD-10-PCS; 2020-11-11)
DX: E11.52 Type 2 diabetes mellitus with diabetic peripheral angiopathy with gangrene (principal); L89.154 Pressure ulcer of sacral region, stage 4; L89.893 Pressure ulcer of other site, stage 3; L89.894 Pressure ulcer of other site, stage 4; E43 Unspecified severe protein-calorie malnutrition; L03.116 Cellulitis of left lower limb; N17.9 Acute kidney failure, unspecified; G93.40 Encephalopathy, unspecified; I48.92 Unspecified atrial flutter; M86.8X4 Other osteomyelitis, hand; I96 Gangrene, not elsewhere classified; I12.9 Hypertensive chronic kidney disease with stage 1 through stage 4 chronic kidney disease, or unspecified chronic kidney disease; N18.9 Chronic kidney disease, unspecified; E11.22 Type 2 diabetes mellitus with diabetic chronic kidney disease; E11.69 Type 2 diabetes mellitus with other specified complication; Z20.822 Contact with and (suspected) exposure to COVID-19; L89.620 Pressure ulcer of left heel, unstageable; D64.9 Anemia, unspecified; B35.1 Tinea unguium; I48.91 Unspecified atrial fibrillation; F03.90 Unspecified dementia, unspecified severity, without behavioral disturbance, psychotic disturbance, mood disturbance, and anxiety; Z68.21 Body mass index [BMI] 21.0-21.9, adult; Z79.4 Long term (current) use of insulin; M89.9 Disorder of bone, unspecified; M24.574 Contracture, right foot; M24.575 Contracture, left foot; Z74.09 Other reduced mobility; I35.0 Nonrheumatic aortic (valve) stenosis; L89.46 Pressure-induced deep tissue damage of contiguous site of back, buttock and hip; E11.649 Type 2 diabetes mellitus with hypoglycemia without coma; Z22.322 Carrier or suspected carrier of Methicillin resistant Staphylococcus aureus; Z79.01 Long term (current) use of anticoagulants; Z86.16 Personal history of COVID-19
CPT/HCPCS: 36415; 36569; 71045-TC; 73200-TC; 73630-TC; 80048-TC; 80053-TC; 80061-TC; 80162-TC; 80202-TC; 82728-TC; 82962-TC; 83540-TC; 83735-TC; 84100-TC; 84439-TC; 84443-TC; 84484-TC; 85025-TC; 85730-TC; 87040-TC; 87070-TC; 87081-TC; 87186-TC; 92526; 92611-TC; 93307-TC; 93970-TC; A6253; A6403; G0378; J0282; J0696; J1650; J1815; J3370; J3490; J7030; J7042; J7050; J7060; U0003

== ENCOUNTER 2021-08-04 16:55 | Inpatient (IN) | payer MEDICARE, BC ==
[~2021-08-04] VITALS: Ht 167.6 cm; Wt 54.4 kg
[~2021-08-04 16:55] MED LIST: ACET325T53 PO; AMIN887L PO; APIX2.5T PO; ASCO500C17 PO; CEFT1PIG2 IV; CHOL200013 PO; CRAN3875 PO; DEXT15DR6 OP; DIGO125T PO; FERR325T23 PO; INSU100V3 SQ; INSU100V7 SQ; MAG30ORA PO; MAGN400O6 PO; METO25TA6 PO; MULT-447 PO; NA P133E RC; QUERCETIN PO; SODI473S8 TOP; Silver Sulfadiazine TP; VANC750P13 IV
[2021-08-04] MEDS ORDERED: VANCOMYCIN 1 GM in IV D5W 250 ML IV ONE (17:30)
[2021-08-04] MEDS ORDERED: IV NS 0.9% 1,000 ML BAG IV ONE ×2 (17:30→20:00)
[2021-08-04] MEDS ORDERED: CEFEPIME 1 GM in IV D5W 50 ML IV ONE (17:30)
[2021-08-04] MEDS ORDERED: GLUC1KIT IM (17:37)
[2021-08-04] MEDS ORDERED: POLY15DR40 EACHEYE (17:37)
[2021-08-04] MEDS ORDERED: ACET-2605 PO (17:37)
[2021-08-04] MEDS ORDERED: AMIN30LI2 PO (17:37)
[2021-08-04] MEDS ORDERED: ASCO500T10 PO (17:37)
[2021-08-04] MEDS ORDERED: DEXT38GE12 PO (17:37)
--- NOTE | 2021-08-04 17:37 | NUR ---
GET PA FROM [facility] DUE TO WORSENING PRESSURE SORE ON SACRAL AREA. PT AAOX1, RR EVEN & UNLABORED. PLACED ON PATTERN CHANGER, AFIB. PT SEEN & EVAL'D BY DR. BURTON. WILL CONT TO MONITOR.
[2021-08-04 19:09] LABS: CALCIUM, SERUM 8.9 mg/dL (8.5-10.1); CARBON DIOXIDE 29 mmol/L (21-32); CHLORIDE 104 mmol/L (98-107); CREATININE 1.4 mg/dL (0.6-1.3); GLUCOSE 319 mg/dL (74-106); POTASSIUM 5.4 mmol/L (3.5-5.1); SODIUM SERUM 138 mmol/L (136-145); UREA NITROGEN, BLOOD 35 mg/dL (7-18)
--- NOTE | 2021-08-04 19:20 | NUR ---
MRSA SWAB COLLECTED AND SENT TO LAB. PATIENT'S BELONGINGS LIST DONE.
--- NOTE | 2021-08-04 19:21 | NUR ---
LA 2.8
[2021-08-04 19:24] LABS: ALANINE AMINOTRANSFERASE 11 U/L (12-78); ALBUMIN 2.7 g/dL (3.4-5.0); ALKALINE PHOSPHATASE 90 U/L (46-116); ASPARTATE AMINOTRANSFERASE 13 U/L (15-37); BILIRUBIN,DIRECT 0.1 mg/dL (0.0-0.2); BILIRUBIN,TOTAL 0.2 mg/dL (0.2-1.0)
[2021-08-04 19:56] LABS: BASOPHILS % (AUTO) 0.4 % (0.0-2.0); EOSINOPHILS % (AUTO) 1.8 % (0.0-6.0); HEMATOCRIT 33 % (39-51); LYMPHOCYTES # (AUTO) 1.5 K/uL (0.8-4.8); LYMPHOCYTES % (AUTO) 21.4 % (20.0-44.0); MEAN CORPUSCULAR HGB CONC 33 g/dl (31.0-36.0); MEAN CORPUSCULAR VOLUME 93 fL (80-96); MONOCYTES # (AUTO) 0.5 K/uL (0.1-1.30); MONOCYTES % (AUTO) 7.7 % (2.0-12.0); NEUTROPHILS # (AUTO) 4.9 K/uL (1.8-8.9); NEUTROPHILS % (AUTO) 68.7 % (43.0-81.0); PLATELET COUNT (AUTO) 309 K/uL (150-450); RED BLOOD CELL COUNT(AUTO) 3.57 MIL/uL (4.5-6.0); WHITE BLOOD COUNT (AUTO) 7.1 K/uL (4.3-11.0)
--- NOTE | 2021-08-04 20:06 | NUR ---
DR HILL PAGED PER DR BURTON.
[2021-08-04] MEDS ORDERED: MAG HYDROX/AL HYDROX/SIMETH 30 ML UDC PO PRN ×2 (21:30)
[2021-08-04] MEDS ORDERED: NA PHOS,M-B/NA PHOS,DI-BA 1 EA ENEMA RC PRN (21:30)
[2021-08-04] MEDS ORDERED: ACETAMINOPHEN 325 MG TABLET PO PRN ×2 (21:30)
[2021-08-04] MEDS ORDERED: ACETAMINOPHEN ES 500 MG TABLET PO PRN (21:30)
[2021-08-04] MEDS ORDERED: Z GUARD REMEDY 4 OZ OINT TP PRN (21:30)
[2021-08-04] MEDS ORDERED: ONDANSETRON HCL/PF 4 MG/2 ML VIAL IVP PRN (21:30)
[2021-08-04] MEDS ORDERED: INSULIN REGULAR, HUMAN 100 UNIT/ML 3 ML VIAL SQ PRN (21:30)
[2021-08-04] MEDS ORDERED: MAGNESIUM HYDROXIDE 30 ML UDC PO PRN ×2 (21:30)
[2021-08-04] MEDS ORDERED: ZOLPIDEM TARTRATE 5 MG TABLET PO PRN (21:30)
--- NOTE | 2021-08-04 21:49 | NUR ---
RECIEVED BED 314-2
--- NOTE | 2021-08-04 22:15 | NUR ---
REPORT GIVEN TO WENDY PENNINGTON
--- NOTE | 2021-08-04 22:37 | NUR ---
PATIENT TRANSFERRED, NO ACUTE DISTRESS NOTED.
[2021-08-04] MEDS ORDERED: GLUTOSE 15 G GEL..GM. PO PRN (23:00)
[2021-08-04 23:26] VITALS: BP 112/73
[2021-08-04] MEDS: IV NS 0.9% 1,000 ML IV SCH (23:35)
--- NOTE | 2021-08-04 23:50 | NUR ---
MS/MERCHANDISE PLANNING MANAGER NOTES RECEIVED PT @2220 FROM [facility] TO [id number] VIA [employer]. PT AWAKE, A/OX1, VERBAL, CLEAR SPEECH BUT CONFUSED, UNABLE TO CARRY ON CONVERSATION. RESPIRATIONS EVEN/UNLABORED. ON ROOM AIR, O2 SAT 96%. IV SITE L-AC #18G INTACT/PATENT/FLUSHES WELL. PT WITH BLE CONTRACTURES. SKIN ASSESSMENT DONE. KEPT PT CLEAN AND COMFORTABLE IN BED. NO ACUTE DISTRESS NOTED. SAFETY MEASURES IN PLACE, BED IN LOWEST LOCKED POSITION, S/R UPX2, CALL LIGHT WITHIN REACH. WILL CONT TO MONITOR.
[2021-08-05] MEDS ORDERED: PIPERACILLIN /TAZOBACTAM 3.375 G VIAL IV ONE (01:46)
[2021-08-05] MEDS ORDERED: PIPERACILLIN /TAZOBACTAM 3.375 G in IV D5W 50 ML IV ONE (02:00)
[2021-08-05] MEDS: BLOOD SUGAR DIAGNOSTIC 1 EACH STRIP IN SCH ×4 (06:18→22:35)
[2021-08-05] MEDS: INSULIN REGULAR, HUMAN 100 UNIT/ML 3 ML VIAL SQ PRN ×4 (06:29→22:34)
[2021-08-05] MEDS ORDERED: GLUCAGON,HUMAN RECOMBINANT 1 MG/VIAL VIAL IM PRN (06:30)
--- NOTE | 2021-08-05 07:00 | NUR ---
RN NOTE PT ASLEEP, EASILY AROUSABLE, VERBAL BUT CONFUSED. NO S/S OF PAIN NOTED. PT SLEPT WELL DURING THE NIGHT. KEPT PT CLEAN AND DRY. ALL NEEDS ATTENDED TO. SAFETY MEASURES MAINTAINED.
[2021-08-05 07:09] LABS: BASOPHILS # (AUTO) 0.1 K/uL (0.0-0.2); BASOPHILS % (AUTO) 0.8 % (0.0-2.0); EOSINOPHILS % (AUTO) 3.2 % (0.0-6.0); HEMATOCRIT 28 % (39-51); HEMOGLOBIN 9.5 g/dL (13.5-17.5); LYMPHOCYTES # (AUTO) 1.8 K/uL (0.8-4.8); LYMPHOCYTES % (AUTO) 29.1 % (20.0-44.0); MEAN CORPUSCULAR HGB CONC 33 g/dl (31.0-36.0); MEAN CORPUSCULAR VOLUME 93 fL (80-96); MONOCYTES # (AUTO) 0.5 K/uL (0.1-1.30); MONOCYTES % (AUTO) 8.4 % (2.0-12.0); NEUTROPHILS # (AUTO) 3.7 K/uL (1.8-8.9); NEUTROPHILS % (AUTO) 58.5 % (43.0-81.0); PLATELET COUNT (AUTO) 250 K/uL (150-450); RED BLOOD CELL COUNT(AUTO) 3.03 MIL/uL (4.5-6.0); WHITE BLOOD COUNT (AUTO) 6.3 K/uL (4.3-11.0)
--- NOTE | 2021-08-05 07:20 | NUR ---
RN MS OPENING NOTES PT ASLEEP IN BED, EASILY AWAKEN UPON CALL OR TOUCH. PT AOX1 AND NOTED WITH CONFUSION. REORIENTED PATIENT NEEDED. ON RA, TOLERATING WELL. BREATHING EVEN AND UNLABORED. NOT IN ANY SIGN OF RESPIRATORY DISTRESS. NOTED WITH BLE CONTRACTURES. IV ACCES ON LAC G#18 INTACT AND PATENT WITH NS RUNNING AT 100ML/HR. NO SIGNS OF INFILTRATION NOTED. SAFETY MEASURES PROVIDED: BED IN LOWEST AND LOCKED POSITION; SIDE RAILS UPX2, BED ALARM IN PLACE AND WORKING. CALL LIGHT WITHIN EASY REACH. WILL CONTINUE TO MONITOR AND WITH PLAN OF CARE.
[2021-08-05] MEDS ORDERED: BLOOD SUGAR DIAGNOSTIC 1 EACH STRIP VI SCH (07:30)
[2021-08-05 08:00] VITALS: BP 101/61
[2021-08-05] MEDS: PIPERACILLIN /TAZOBACTAM 3.375 G in IV D5W 50 ML IV SCH ×3 (08:16→20:02)
[2021-08-05 08:51] LABS: CALCIUM, SERUM 8.3 mg/dL (8.5-10.1); CREATININE 1.1 mg/dL (0.6-1.3); MAGNESIUM 1.8 mg/dL (1.8-2.4); PHOSPHORUS 3.2 mg/dL (2.5-4.9)
[2021-08-05] MEDS ORDERED: Medication Not On Formulary EA (Cran/Vitc/Mannose/Inulin/Brom (Uti-Stat Liquid) 30 ML) PO SCH (09:00)
[2021-08-05] MEDS: MULTIVIT W/MINERALS 1 TAB TABLET PO SCH (09:33)
[2021-08-05] MEDS: FERROUS SULFATE (325 MG) 325 MG/TAB TABLET PO SCH (09:33)
[2021-08-05] MEDS: ASCORBIC ACID 500 MG TABLET PO SCH (09:33)
[2021-08-05] MEDS: CHOLECALCIFEROL 1,000 UNIT TABLET (VIT D3) PO SCH (09:33)
[2021-08-05] MEDS: ACETAMINOPHEN 325 MG TABLET PO SCH (09:33)
[2021-08-05] MEDS: METOPROLOL TARTRATE 25 MG TABLET PO SCH ×3 (09:34→16:38)
[2021-08-05] MEDS: DIGOXIN 0.125 MG TABLET PO SCH (09:34)
[2021-08-05] MEDS: APIXABAN 2.5 MG TABLET PO SCH ×2 (09:35→22:35)
[2021-08-05] MEDS: POLYVINYL ALCOHOL 15 ML BOTTLE EACHEYE SCH ×3 (09:50→16:36)
[2021-08-05] MEDS: PROSOURCE / PROSTAT (PYXIS) 30 ML UDC PO SCH ×3 (09:50→16:36)
[2021-08-05] MEDS: IV NS 0.9% 1,000 ML IV SCH ×2 (09:51→17:34)
--- NOTE | 2021-08-05 10:00 | NUR ---
RN NOTES PT SEEN BY ST FOR SWALLOW EVALUATION AND PLACED PT ON SOFT DIET THIN LIQUIDS CONSISTENCY.
--- NOTE | 2021-08-05 12:08 | NUR ---
WOUND CARE CONSULT: PT EATING LUNCH AT THIS TIME. REVIEWED CHART, NURSING DOCUMENTATION AND PHOTOS WHICH INDICATE LARGE STAGE 4 SACRAL PRESSURE ULCER AND LOWER EXTREMITY WOUNDS, PRESENT ON ADMISSION. DR HATHAWAY AND DR RIDLEY NOTIFIED OF SURGICAL AND DPM CONSULT REQUESTS. DISCUSSED SKIN PROTECTION WITH NURSING STAFF. MD IN AGREEMENT WITH PLAN OF CARE.
[2021-08-05] MEDS: VANCOMYCIN HCL 0.75 GM in IV D5W 250 ML IV SCH (12:36)
[2021-08-05] MEDS: DAKINS QUARTER STRENGTH (0.125%) 480 ML BOTTLE TOP SCH (18:45)
--- NOTE | 2021-08-05 18:57 | NUR ---
MS RN CLOSING NOTES PT AWAKE IN BED, AOX1 WITH CONFUSION. REORIENTED PATIENT NEEDED. ON RA, TOLERATING WELL. BREATHING EVEN AND UNLABORED. NOT IN ANY SIGN OF RESPIRATORY DISTRESS. NOTED WITH BLE CONTRACTURES. IV ACCESS ON LAC G#18 INTACT AND PATENT WITH NS RUNNING AT 100ML/HR. NO SIGNS OF INFILTRATION NOTED. PT IS TURNED AND REPOSITIONED Q2HRS AND NEEDED. ALL NEEDS AND CARE PROVIDED. SAFETY MEASURES PROVIDED: BED IN LOWEST AND LOCKED POSITION; SIDE RAILS UPX2, BED ALARM IN PLACE AND WORKING. CALL LIGHT WITHIN EASY REACH. WILL ENDORSE TO LEAD APPLIER NURSE.
--- NOTE | 2021-08-05 19:10 | NUR ---
MS RN OPENING NOTES: RECEIVED PATIENT IN BED, AWAKE, A/O X1-2, CONFUSED. NO S/S OF DISTRESS NOTED. NO COMPLAIN OF PAIN. CALL LIGHT WITHIN REACH. BED ALARM ON. BED IN LOWEST AND LOCKED POSITION. HOB ELEVATED.
[2021-08-05 20:00] VITALS: BP 115/56
[2021-08-05] MEDS: INSULIN GLARGINE, 100 UNIT/ML CARTRIDGE SQ SCH (22:32)
--- NOTE | 2021-08-06 00:42 | NUR ---
CHECKED PATIENT'S HR ON THE BP MACHINE WITH PULSE OXIMETER VERY IRREGULAR WITH THE HIGHEST WAS 115 AND LOWEST WAS 75. MANUAL PULSE RATE COUNT (RADIAL) DONE, 88 STILL IRREGULAR. HR AT 1999=WAS 125. INFORMED DR JAIN.
[2021-08-06] MEDS: IV NS 0.9% 1,000 ML IV SCH ×3 (01:15→23:25)
[2021-08-06] MEDS: PIPERACILLIN /TAZOBACTAM 3.375 G in IV D5W 50 ML IV SCH ×4 (01:15→19:45)
[2021-08-06 04:00] VITALS: BP 129/57
--- NOTE | 2021-08-06 04:38 | NUR ---
PATIENT HAD BM AGAIN, SACRAL WOUND DRESSING SOILED, DRESSING CHANGED.
[2021-08-06] MEDS: VANCOMYCIN HCL 0.75 GM in IV D5W 250 ML IV SCH (06:27)
[2021-08-06] MEDS: DEXTROSE 50%-WATER 50 ML DISP.SYRIN IV PRN (06:52)
--- NOTE | 2021-08-06 06:52 | NUR ---
blood sugar checked= 50, D50 GIVEN IV.
--- NOTE | 2021-08-06 07:00 | NUR ---
BLOOD SUGAR QKLQUCSFI=540.
[2021-08-06] MEDS: BLOOD SUGAR DIAGNOSTIC 1 EACH STRIP IN SCH ×4 (07:30→21:32)
--- NOTE | 2021-08-06 07:43 | NUR ---
MS RN OPENING NOTES RECEIVED PATIENT IN BED, ASLEEP. PATIENT ON ROOM AIR; BREATHING EVEN AND UNLABORED, NO SOB NOTED. NO S/SX OF PAIN. IV ACCESS ON LAC G #18 PRESENT AND INTACT RUNNING NS @ 100 MLS/HR. SAFETY PRECAUTIONS IN PLACE; BED IN LOW POSITION AND LOCKED, RAILS UP X2, CALL LIGHT WITHIN REACH. WILL CONTINUE TO MONITOR PATIENT.
[2021-08-06 08:42] LABS: BASOPHILS # (AUTO) 0.1 K/uL (0.0-0.2); BASOPHILS % (AUTO) 0.7 % (0.0-2.0); EOSINOPHILS % (AUTO) 2.5 % (0.0-6.0); HEMATOCRIT 29 % (39-51); HEMOGLOBIN 9.4 g/dL (13.5-17.5); LYMPHOCYTES # (AUTO) 1.5 K/uL (0.8-4.8); LYMPHOCYTES % (AUTO) 20.4 % (20.0-44.0); MEAN CORPUSCULAR HGB CONC 33 g/dl (31.0-36.0); MEAN CORPUSCULAR VOLUME 93 fL (80-96); MONOCYTES # (AUTO) 0.6 K/uL (0.1-1.30); MONOCYTES % (AUTO) 7.9 % (2.0-12.0); NEUTROPHILS # (AUTO) 5.1 K/uL (1.8-8.9); NEUTROPHILS % (AUTO) 68.5 % (43.0-81.0); PLATELET COUNT (AUTO) 247 K/uL (150-450); RED BLOOD CELL COUNT(AUTO) 3.06 MIL/uL (4.5-6.0); WHITE BLOOD COUNT (AUTO) 7.4 K/uL (4.3-11.0)
[2021-08-06] MEDS: POLYVINYL ALCOHOL 15 ML BOTTLE EACHEYE SCH ×3 (09:03→16:27)
[2021-08-06] MEDS: ASCORBIC ACID 500 MG TABLET PO SCH (09:09)
[2021-08-06] MEDS: CHOLECALCIFEROL 1,000 UNIT TABLET (VIT D3) PO SCH (09:10)
[2021-08-06] MEDS: MULTIVIT W/MINERALS 1 TAB TABLET PO SCH (09:10)
[2021-08-06] MEDS: ACETAMINOPHEN 325 MG TABLET PO SCH (09:10)
[2021-08-06] MEDS: FERROUS SULFATE (325 MG) 325 MG/TAB TABLET PO SCH (09:10)
[2021-08-06] MEDS: APIXABAN 2.5 MG TABLET PO SCH ×2 (09:13→21:00)
[2021-08-06] MEDS: DIGOXIN 0.125 MG TABLET PO SCH (09:18)
[2021-08-06] MEDS: METOPROLOL TARTRATE 25 MG TABLET PO SCH ×3 (09:19→16:57)
[2021-08-06] MEDS: PROSOURCE / PROSTAT (PYXIS) 30 ML UDC PO SCH ×3 (09:19→16:26)
[2021-08-06] MEDS: DAKINS QUARTER STRENGTH (0.125%) 480 ML BOTTLE TOP SCH (09:20)
[2021-08-06 09:33] LABS: ALBUMIN 2.3 g/dL (3.4-5.0); BILIRUBIN,TOTAL 0.4 mg/dL (0.2-1.0); CALCIUM, SERUM 8.3 mg/dL (8.5-10.1); CREATININE 1.2 mg/dL (0.6-1.3); PHOSPHORUS 2.9 mg/dL (2.5-4.9); POTASSIUM 3.7 mmol/L (3.5-5.1); TOTAL PROTEIN, SERUM 6.2 g/dL (6.4-8.2)
--- NOTE | 2021-08-06 10:50 | NUR ---
WOUND CARE CONSULT: PT FOLLOWED BY SURGICAL AND PODIATRY TEAMS FOR WOUNDS. DEFER TO SURGICAL TEAMS FOR WOUND TREATMENT PLAN. PT PLACED ON AGNIESZKA ISOFLEX LOW AIRLOSS BED. PT IS INCONTINENT. RECOMMENDATIONS MADE FOR SKIN PROTECTION. DISCUSSED WITH NURSING STAFF. MD IN AGREEMENT WITH PLAN OF CARE.
--- NOTE | 2021-08-06 18:52 | NUR ---
MS RN CLOSING NOTES PATIENT REMAINS IN BED, ASLEEP. PATIENT ON ROOM AIR; BREATHING EVEN AND UNLABORED, NO SOB NOTED. NO S/SX OF PAIN DURING SHIFT. TELE MONITOR WITH A CURRENT READING OF A-FIB 80. IV ACCESS ON LAC G #18 PRESENT AND INTACT RUNNING NS @ 100 MLS/HR. ALL NEEDS ATTENDED DURING THE DAY. SAFETY PRECAUTIONS IN PLACE; BED IN LOW POSITION AND LOCKED, RAILS UP X2, CALL LIGHT WITHIN REACH. WILL ENDORSE TO BOX INSPECTOR NURSE FOR MARISSA.
--- NOTE | 2021-08-06 19:45 | NUR ---
RN OPENING NOTES Patient is awake, A&Ox1 to self. Currently SR in 60s on the monitor. LAC#18G flushed and patent NS running at 100ml/hr. Denies pain or discomfort at this time. No s/s of hypo or hyperglycemia. No signs of distress. Will continue to monitor.
[2021-08-06 20:00] VITALS: BP 117/61
--- NOTE | 2021-08-06 20:45 | NUR ---
Called Shirley in attempt to get consent for wound debridement. Did not worm picker -left a voicemail to call back.
[2021-08-06] MEDS: *INSULIN REGULAR(HUMULIN R)HUM 100 UNIT/ML VIAL SQ PRN (21:27)
[2021-08-06] MEDS: INSULIN GLARGINE, 100 UNIT/ML CARTRIDGE SQ SCH (21:32)
--- NOTE | 2021-08-06 21:32 | NUR ---
Patient's kathie held d/t sacral debridement scheduled for tomorrow. pt. given coverage 4 units from regular insulin for blood sugar 211 however jing held d/t patient became hypoglycemic last night with AM blood sugar of 50.
[2021-08-07] VITALS: BP 129/71
--- NOTE | 2021-08-07 00:30 | NUR ---
lab at bedside drawing cade trough
[2021-08-07] MEDS: VANCOMYCIN HCL 0.75 GM in IV D5W 250 ML IV SCH ×2 (01:21→18:07)
[2021-08-07] MEDS: PIPERACILLIN /TAZOBACTAM 3.375 G in IV D5W 50 ML IV SCH ×4 (02:37→20:20)
[2021-08-07 04:00] VITALS: BP 125/85
--- NOTE | 2021-08-07 06:33 | NUR ---
Patient has been A&Ox1 confused but calm and pleasant. Tolerating IVF and IV ABX well. Wound care provided. Kept clean and dry. Turned q2h. Was able to get consent for sacral debridement today from Shirley Garnett. AM blood sugar 118. Afib on monitor overnight ranging from 40s to 110s.
--- NOTE | 2021-08-07 06:41 | NUR ---
Currently sleeping though easy to wake in no signs of distress. Safety measures in place
[2021-08-07 07:15] LABS: CALCIUM, SERUM 8.4 mg/dL (8.5-10.1); CREATININE 1.2 mg/dL (0.6-1.3); POTASSIUM 3.7 mmol/L (3.5-5.1)
[2021-08-07] MEDS: BLOOD SUGAR DIAGNOSTIC 1 EACH STRIP IN SCH ×4 (07:15→21:19)
--- NOTE | 2021-08-07 07:36 | NUR ---
RN OPENING NOTE PATIENT IN BED, ASLEEP. EASILY AWAKENED, PT SEEMS QUIET, CONFUSED, PATIENT ON ROOM AIR; BREATHING EVEN AND NON-LABORED, NO SOB NOTED. NO S/SX OF PAIN. IV ACCESS ON LAC G #18 PRESENT AND INTACT RUNNING NS @ 100 MLS/HR. SAFETY PRECAUTIONS IN PLACE; BED IN LOW POSITION AND LOCKED, RAILS UP X2, CALL LIGHT WITHIN REACH. WILL CONTINUE TO MONITOR / ASSIST
[2021-08-07 08:00] VITALS: BP 103/81
[2021-08-07] MEDS: POLYVINYL ALCOHOL 15 ML BOTTLE EACHEYE SCH ×3 (08:50→16:27)
[2021-08-07] MEDS: FERROUS SULFATE (325 MG) 325 MG/TAB TABLET PO SCH (08:51)
[2021-08-07] MEDS: DIGOXIN 0.125 MG TABLET PO SCH (08:51)
[2021-08-07] MEDS: ACETAMINOPHEN 325 MG TABLET PO SCH (08:51)
[2021-08-07] MEDS: MULTIVIT W/MINERALS 1 TAB TABLET PO SCH (08:51)
[2021-08-07] MEDS: CHOLECALCIFEROL 1,000 UNIT TABLET (VIT D3) PO SCH (08:51)
[2021-08-07] MEDS: METOPROLOL TARTRATE 25 MG TABLET PO SCH ×3 (08:52→16:29)
[2021-08-07] MEDS: APIXABAN 2.5 MG TABLET PO SCH ×2 (08:57→20:21)
[2021-08-07] MEDS: PROSOURCE / PROSTAT (PYXIS) 30 ML UDC PO SCH ×3 (08:58→16:29)
[2021-08-07] MEDS: ASCORBIC ACID 500 MG TABLET PO SCH (08:58)
[2021-08-07] MEDS: IV NS 0.9% 1,000 ML IV SCH ×2 (09:00→20:20)
[2021-08-07] MEDS: DAKINS QUARTER STRENGTH (0.125%) 480 ML BOTTLE TOP SCH (09:00)
--- NOTE | 2021-08-07 11:00 | NUR ---
RN NOTE- DRESSING CHANGE TO LT FOOT COMPLETED AT THIS TIME. CLEANSED W DAKINS, PETROLEUYM GAUZE AND KERLIX APPLIED. TOLERATED WELL.
[2021-08-07] MEDS: INSULIN REGULAR, HUMAN 100 UNIT/ML 3 ML VIAL SQ PRN ×3 (11:48→21:22)
[2021-08-07 12:00] VITALS: BP 105/58
--- NOTE | 2021-08-07 14:21 | NUR ---
RN NOTE- SACRAL DECUBITUS DRESSING CHANGED PER ORDERS. TOLERATED WELL.
--- NOTE | 2021-08-07 14:52 | NUR ---
RN NOTE- PERIPHERAL IV TO LAC LEAKING. DC'D AND INSERTED 20 G TO LFA. TOLERATED WELL.
[2021-08-07 16:00] VITALS: BP 95/55
--- NOTE | 2021-08-07 18:37 | NUR ---
RN CLOSING NOTE PATIENT IN BED, ORIENTED TO PERSON ONLY , PT SEEMS QUIET, CONFUSED, PATIENT ON ROOM AIR; BREATHING EVEN AND NON-LABORED, NO SOB NOTED. NO S/SX OF PAIN. IV ACCESS ON LFA G #20 PRESENT AND INTACT RUNNING NS @ 100 MLS/HR. SAFETY PRECAUTIONS IN PLACE; BED IN LOW POSITION AND LOCKED, RAILS UP X2, CALL LIGHT WITHIN REACH. WILL CONTINUE TO MONITOR / ASSIST
[2021-08-07 20:00] VITALS: BP 125/58
[2021-08-07] MEDS: INSULIN GLARGINE, 100 UNIT/ML CARTRIDGE SQ SCH (21:20)
[2021-08-08] VITALS: BP 126/56
[2021-08-08] MEDS: PIPERACILLIN /TAZOBACTAM 3.375 G in IV D5W 50 ML IV SCH ×4 (02:24→20:11)
[2021-08-08 05:00] VITALS: BP 143/64
[2021-08-08] MEDS: DEXTROSE 50%-WATER 50 ML DISP.SYRIN IV PRN (05:29)
[2021-08-08] MEDS: BLOOD SUGAR DIAGNOSTIC 1 EACH STRIP IN SCH ×4 (05:29→21:19)
[2021-08-08] MEDS: IV NS 0.9% 1,000 ML IV SCH ×2 (05:32→16:33)
--- NOTE | 2021-08-08 05:44 | NUR ---
DIRECTOR SELECTION AND ADMINISTRATION NOTES BS CHECKED 405. RECHECKED BS 424. 15 UNITS REGULAR SQ GIVEN. NOTIFIED MICHELLE DEUTSCH TRACK BROOM OPERATOR FOR EPIC. MADE AWARE RE PT'S CONDITION. NO NEW ORDERS AT THIS TIME. WILL CONTINUE TO MONITOR. Addendum: 08/08/21 at 0546 by KAROLINE COOK RN DISREGARD NOTES, NOTES FOR A DIFFERENT PATIENT
--- NOTE | 2021-08-08 05:47 | NUR ---
MUNICIPAL COURT JUDGE NOTES BS CHECKED 40. RECHECKED BS 36. D50 GIVEN ORDERED. WILL CONTINUE TO MONITOR.
--- NOTE | 2021-08-08 06:12 | NUR ---
OILFIELD PLANT AND FIELD OPERATOR NOTES AWAKE & RESPONSIVE. NOT IN ANY DISTRESS. NO SOB NOTED. DENIES ANY PAIN OR DISCOMFORT AT THIS TIME. ON TELE AFIB @ 68 WITH IV-HL PATENT & INTACT. AM CARE DONE. MONITORED ACCORDINGLY. CALL LIGHT WITHIN REACH. BED IN LOWEST POSITION. SR UP X 3 [facility] BED ALARM ON FOR SAFETY. WILL ENDORSE TO NEXT SHIFT.
[2021-08-08 07:13] LABS: CALCIUM, SERUM 7.9 mg/dL (8.5-10.1); CREATININE 1.3 mg/dL (0.6-1.3); POTASSIUM 3.4 mmol/L (3.5-5.1)
--- NOTE | 2021-08-08 07:25 | NUR ---
PIECE HAND OPENING NOTES PT AWAKE IN BED ASLEEP, EASILY AWAKEN UPON CALL OR TOUCH. AOX1 WITH CONFUSION. ON RA, TOLERATING WELL. BREATHING EVEN AND UNLABORED. NOT IN ANY SIGN OF RESPIRATORY DISTRESS. ON TELE MONITOR, SHOWS AFIB CONTROLLED WITH HR 82. IV ACCESS ON LFA G#20 INTACT AND PATENT WITH NS RUNNING AT 100ML/HR. NO SIGNS OF INFILTRATION NOTED. SAFETY MEASURES PROVIDED: BED IN LOWEST AND LOCKED POSITION; SIDE RAILS UPX2, BED ALARM IN PLACE AND WORKING. CALL LIGHT WITHIN EASY REACH. WILL CONTINUE TO MONITOR AND WITH PLAN OF CARE.
[2021-08-08 08:00] VITALS: BP 122/55
[2021-08-08] MEDS: ASCORBIC ACID 500 MG TABLET PO SCH (08:46)
[2021-08-08] MEDS: PROSOURCE / PROSTAT (PYXIS) 30 ML UDC PO SCH ×3 (08:46→16:35)
[2021-08-08] MEDS: ACETAMINOPHEN 325 MG TABLET PO SCH (08:47)
[2021-08-08] MEDS: FERROUS SULFATE (325 MG) 325 MG/TAB TABLET PO SCH (08:47)
[2021-08-08] MEDS: CHOLECALCIFEROL 1,000 UNIT TABLET (VIT D3) PO SCH (08:47)
[2021-08-08] MEDS: MULTIVIT W/MINERALS 1 TAB TABLET PO SCH (08:47)
[2021-08-08] MEDS: DIGOXIN 0.125 MG TABLET PO SCH (08:48)
[2021-08-08] MEDS: METOPROLOL TARTRATE 25 MG TABLET PO SCH ×3 (08:48→16:30)
[2021-08-08] MEDS: APIXABAN 2.5 MG TABLET PO SCH ×2 (08:49→21:17)
[2021-08-08] MEDS: POLYVINYL ALCOHOL 15 ML BOTTLE EACHEYE SCH ×3 (09:09→16:34)
[2021-08-08] MEDS: DAKINS QUARTER STRENGTH (0.125%) 480 ML BOTTLE TOP SCH (09:27)
[2021-08-08] MEDS ORDERED: POTASSIUM CHLORIDE 20 MEQ POWDER PACKET PO SCH (11:00)
--- NOTE | 2021-08-08 11:27 | NUR ---
RN NOTES PT NOTED WITH LOW POTASSIUM 3.4, ADMINISTERED KLOR-CON POWDER 20 MEQ PO ORDERED.
[2021-08-08] MEDS: INSULIN REGULAR, HUMAN 100 UNIT/ML 3 ML VIAL SQ PRN ×2 (11:47→17:24)
[2021-08-08] MEDS: VANCOMYCIN HCL 0.75 GM in IV D5W 250 ML IV SCH (12:19)
[2021-08-08 16:00] VITALS: BP 100/59
--- NOTE | 2021-08-08 18:43 | NUR ---
TECHNICAL BUYER CLOSING NOTES PT ASLEEP IN BED, EASILY AWAKEN UPON CALL OR TOUCH. AOX1 WITH CONFUSION. REORIENTED PT NEEDED. ON RA, TOLERATING WELL. BREATHING EVEN AND UNLABORED. NOT IN ANY SIGN OF RESPIRATORY DISTRESS. ON TELE MONITOR, SHOWS CONTROLLED AFIB WITH HR ON THE 80s AT THIS TIME. IV ACCESS ON LFA G#20 INTACT AND PATENT WITH NS RUNNING AT 100ML/HR. NO SIGNS OF INFILTRATION NOTED. PT IS TURNED AND REPOSITIONED Q2HRS AND NEEDED. ALL NEEDS AND CARE PROVIDED TO PT. KEPT CLEAN AND DRY. SAFETY MEASURES PROVIDED: BED IN LOWEST AND LOCKED POSITION; SIDE RAILS UPX2, BED ALARM IN PLACE AND WORKING. CALL LIGHT WITHIN EASY REACH. WILL ENDORSE TO PAPER SEALER NURSE.
--- NOTE | 2021-08-08 18:50 | NUR ---
RN NOTES PT SUPPLEMENTAL O2 TITRATED DOWN FROM 2L TO 1.5 L/MIN. ABLE TO TOLERATE WELL WITH NO SIGNS OF RESPIRATORY DISTRESS. BREATHING EVEN AND UNLABORED. WILL ENDORSE TO TECHNICAL WRITER AND EDITOR.
--- NOTE | 2021-08-08 19:21 | NUR ---
RN NOTES PT NOTED IV ACCESS ON LAC G#20 INFILTRATED. IV ACCESS REMOVED AND INSERTED NEW IV ACCESS ON RIGHT HAND G#22 AND IVF OF NS @ 100ML/HR CONTINUED.
--- NOTE | 2021-08-08 19:39 | NUR ---
AUTOMATION CONTROLS SPECIALIST OPENING NOTE PATIENT RECEIVED AWAKE IN BED. A/OX1. NON S/S OF DISTRESS, BREATHING ON RM AIR W/O DIFFICULTY. RH #22 INTACT AND PATENT W/ NS 100ML/HR. TELE MONITOR REVEALS AFIB 81. SAFETY MEASURES IN PLACE: BE AT LOWEST POSITION, RAILS UP X3, CALL LIGHT WITHIN REACH. WILL CONTINUE TO MONITOR PATIENT.
[2021-08-08 20:00] VITALS: BP 118/98
[2021-08-08] MEDS: *INSULIN REGULAR(HUMULIN R)HUM 100 UNIT/ML VIAL SQ PRN (21:25)
[2021-08-08] MEDS: INSULIN GLARGINE, 100 UNIT/ML CARTRIDGE SQ SCH (21:26)
[2021-08-09] VITALS: BP 124/74
[2021-08-09] MEDS: PIPERACILLIN /TAZOBACTAM 3.375 G in IV D5W 50 ML IV SCH ×4 (02:12→19:45)
[2021-08-09] MEDS: IV NS 0.9% 1,000 ML IV SCH ×3 (02:12→21:31)
[2021-08-09 04:38] VITALS: BP 151/89
[2021-08-09] MEDS: BLOOD SUGAR DIAGNOSTIC 1 EACH STRIP IN SCH ×4 (06:32→21:37)
[2021-08-09] MEDS: INSULIN REGULAR, HUMAN 100 UNIT/ML 3 ML VIAL SQ PRN ×2 (06:33→12:27)
--- NOTE | 2021-08-09 06:47 | NUR ---
BOBBIN DUMPER CLOSING NOTE PATIENT IS ASLEEP IN BED. A/OX1. NO S/S OF DISTRESS, BREATHING ON RM AIR W/O DIFFICULTY. RH #22 INTACT AND PATENT W/ NS 100ML/HR. TELE MONITOR REVEALS AFIB 78, CONTROLLED. SAFETY MEASURES IN PLACE: BED AT LOWEST POSITION, LOCKED, RAILS UP X3, CALL SKINNER WITHIN REACH. WILL ENDORSE TO NEXT SHIFT FOR MARISSA.
--- NOTE | 2021-08-09 06:48 | NUR ---
ENVIRONMENTAL ANALYST CLOSING NOTE PATIENT IS ASLEEP IN BED. A/OX4. NO S/S OF DISTRESS, BREATHING ON BIPAP W/O DIFFICULTY. LFA #22 INTACT AND PATENT. TELE MONITOR REVEALS SR 66. SAFETY MEASURES IN PLACE: BED AT LOWEST POSITION, LOCKED, RAILS UP X3, CALL SKINNER WITHIN REACH. WILL ENDORSE TO NEXT SHIFT FOR MARISSA.
[2021-08-09] MEDS: VANCOMYCIN HCL 0.75 GM in IV D5W 250 ML IV SCH ×2 (07:00→21:31)
--- NOTE | 2021-08-09 07:00 | NUR ---
CHARGE ATTENDANT OPENING NOTE PATIENT ASLEEP IN BED, A/OX1. TOLERATING WELL ON ROOM AIR WITH NO S/S OF RESPIRATORY DISTRESS. BREATHING EVEN AND UNLABORED. NO COMPLAINTS OF PAIN OR DISCOMFORT AT THIS TIME. RH # 22 CLEAN, INTACT AND FLUSHING WELL WITH NS @ 100 ML/HR. TELE MONITOR WITH CONTROLLED A-FIB 80. SAFETY MEASURES IN PLACE: BED IN LOWEST LOCKED POSITION, SIDE RAILS UP X 2, CALL LIGHT WITHIN REACH. WILL CONTINUE TO MONITOR.
[2021-08-09 07:51] LABS: CALCIUM, SERUM 8.1 mg/dL (8.5-10.1); CREATININE 1.1 mg/dL (0.6-1.3); POTASSIUM 3.6 mmol/L (3.5-5.1)
[2021-08-09 08:00] VITALS: BP 142/76
--- NOTE | 2021-08-09 08:00 | NUR ---
DAIRY ASSOCIATE NOTES VANCOMYCIN HELD FOR 0700 DOSE DUE TO VANCO TROUGH 22. PHARMACY MADE AWARE AND WILL ADJUST FOR NEXT DOSE.
[2021-08-09] MEDS: DIGOXIN 0.125 MG TABLET PO SCH (09:01)
[2021-08-09] MEDS: PROSOURCE / PROSTAT (PYXIS) 30 ML UDC PO SCH ×3 (09:01→17:18)
[2021-08-09] MEDS: POLYVINYL ALCOHOL 15 ML BOTTLE EACHEYE SCH ×3 (09:01→17:18)
[2021-08-09] MEDS: ASCORBIC ACID 500 MG TABLET PO SCH (09:02)
[2021-08-09] MEDS: CHOLECALCIFEROL 1,000 UNIT TABLET (VIT D3) PO SCH (09:02)
[2021-08-09] MEDS: ACETAMINOPHEN 325 MG TABLET PO SCH (09:02)
[2021-08-09] MEDS: FERROUS SULFATE (325 MG) 325 MG/TAB TABLET PO SCH (09:05)
[2021-08-09] MEDS: APIXABAN 2.5 MG TABLET PO SCH ×2 (09:05→21:39)
[2021-08-09] MEDS: MULTIVIT W/MINERALS 1 TAB TABLET PO SCH (09:05)
[2021-08-09] MEDS: METOPROLOL TARTRATE 25 MG TABLET PO SCH ×3 (09:06→17:18)
[2021-08-09] MEDS: DAKINS QUARTER STRENGTH (0.125%) 480 ML BOTTLE TOP SCH (09:06)
[2021-08-09 12:49] VITALS: BP 117/67
[2021-08-09 16:00] VITALS: BP 118/62
[2021-08-09] MEDS: *INSULIN REGULAR(HUMULIN R)HUM 100 UNIT/ML VIAL SQ PRN ×2 (17:20→21:42)
--- NOTE | 2021-08-09 19:00 | NUR ---
ELECTRIC DEICER INSPECTOR CLOSING NOTES PATIENT IS AWAKE IN BED; FAMILY AT BEDSIDE. A/OX3. NO S/S OF DISTRESS; BREATHING WITHOUT DIFFICULTY BY VENT. RH #22 INTACT AND PATENT. TELE MONITOR REVEALS AFIB 74, CONTROLLED. SAFETY MEASURES IN PLACE: BED AT LOWEST POSITION, LOCKED, RAILS UP X3, CALL SKINNER WITHIN REACH. WILL ENDORSE TO MANAGEMENT TECH FOR MARISSA.
--- NOTE | 2021-08-09 19:35 | NUR ---
INSTRUCTIONAL TECHNOLOGY DIRECTOR OPENING NOTE PATIENT IS AWAKE IN BED; FAMILY AT BEDSIDE. A/OX3. NO S/S OF DISTRESS; BREATHING WITHOUT DIFFICULTY BY VENT. RH #22 INTACT AND PATENT. TELE MONITOR REVEALS AFIB 70, CONTROLLED. SAFETY MEASURES IN PLACE: BED AT LOWEST POSITION, LOCKED, RAILS UP X3, CALL SKINNER WITHIN REACH. WILL CONTINUE TO MONITOR PATIENT.
[2021-08-09] MEDS: INSULIN GLARGINE, 100 UNIT/ML CARTRIDGE SQ SCH (21:43)
--- NOTE | 2021-08-10 02:35 | NUR ---
RN NOTE PATIENT FOUND TO HAVE REMOVED IV ACCESS. NO ACTIVE BLEEDING; PRESSURE BANDAGE APPLIED; ALL IV ITEMS INCLUDING CATH ACCOUNTED FOR AND DISPOSED OF PROPERLY. PATIENT STABLE. NEW IV INSERT IN RFA#22. WILL CONTINUE TO MONITOR PATIENT.
[2021-08-10] MEDS: PIPERACILLIN /TAZOBACTAM 3.375 G in IV D5W 50 ML IV SCH ×4 (02:49→20:11)
[2021-08-10] MEDS: DEXTROSE 50%-WATER 50 ML DISP.SYRIN IV PRN (06:10)
[2021-08-10 06:38] LABS: BASOPHILS # (AUTO) 0.1 K/uL (0.0-0.2); EOSINOPHILS % (AUTO) 2.4 % (0.0-6.0); HEMATOCRIT 25 % (39-51); HEMOGLOBIN 8.5 g/dL (13.5-17.5); LYMPHOCYTES # (AUTO) 1.6 K/uL (0.8-4.8); LYMPHOCYTES % (AUTO) 24.2 % (20.0-44.0); MEAN CORPUSCULAR HGB CONC 34 g/dl (31.0-36.0); MEAN CORPUSCULAR VOLUME 92 fL (80-96); MONOCYTES # (AUTO) 0.5 K/uL (0.1-1.30); MONOCYTES % (AUTO) 8.2 % (2.0-12.0); NEUTROPHILS # (AUTO) 4.3 K/uL (1.8-8.9); NEUTROPHILS % (AUTO) 64.2 % (43.0-81.0); PLATELET COUNT (AUTO) 262 K/uL (150-450); RED BLOOD CELL COUNT(AUTO) 2.75 MIL/uL (4.5-6.0); WHITE BLOOD COUNT (AUTO) 6.7 K/uL (4.3-11.0)
--- NOTE | 2021-08-10 06:40 | NUR ---
RN NOTE PATIENT HAD A BS LEVEL OF 29 ON THE LEFT HAND AND 27 ON THE RIGHT. I TOOK IT TWICE TO VERIFY LEVEL. PATIENT WAS RESPONSIVE BUT DOZING. DEXTROSE 50% WAS ADMINISTERED. VS WERE RE-CHECKED W/ BP 90/48, HR OF 113 (BY OXIMETER) AND O2 73 (ALSO BY OXIMETER). NC WAS APPLIED W/ SETTING AT 2L. AT 0640, PATIENT'S BS WAS AT 128, HR 60, AND O2 100%. PATIENT, WHILE STILL MAINTAINING BEING AROUSALABLE, WAS MUCH MORE ALERT TO HIS SURROUNDINGS. Addendum: 08/10/21 at 0704 by BALTAZAR GARCIA RN PATIENT IS STABLE; WILL ENDORSE TO NEXT SHIFT.
--- NOTE | 2021-08-10 06:54 | NUR ---
INDUSTRIAL HYGIENE TECHNICIAN CLOSING NOTES PATIENT AWAKE IN BED. A/OX1. NO S/S OF DISTRESS; BREATHING ON 2L NC W/O DIFFICULTY. RH #22 INTACT AND PATENT W/ NS 100ML/HR. TELE MONITOR REVEALS AFIB 55, CONTROLLED. SAFETY MEASURES IN PLACE: BED AT LOWEST POSITION, LOCKED, RAILS UP X3, CALL SKINNER WITHIN REACH. WILL ENDORSE TO NEXT SHIFT FOR MARISSA.
[2021-08-10] MEDS: BLOOD SUGAR DIAGNOSTIC 1 EACH STRIP IN SCH ×4 (06:58→21:38)
[2021-08-10] MEDS: INSULIN REGULAR, HUMAN 100 UNIT/ML 3 ML VIAL SQ PRN ×4 (06:58→21:44)
[2021-08-10 07:01] LABS: CALCIUM, SERUM 8.1 mg/dL (8.5-10.1); CREATININE 1.1 mg/dL (0.6-1.3); MAGNESIUM 2.1 mg/dL (1.8-2.4)
--- NOTE | 2021-08-10 07:35 | NUR ---
RN NOTES PATIENT AWAKE IN BED, VERBALLY RESPONSIVE. A/OX1. ON 2L O2 VIA NC. RH #22 INTACT AND PATENT W/ NS 100ML/HR. ON CARDIAC MONITORING, READING OF AFIB ON HIGH 50'S TO LOW 60'S, CONTROLLED. SAFETY MEASURES IN PLACE: BED AT LOWEST POSITION, LOCKED, RAILS UP X3, CALL SKINNER WITHIN REACH. WILL CONTINUE TO MONITOR.
[2021-08-10] MEDS: IV NS 0.9% 1,000 ML IV SCH ×2 (07:44→16:02)
[2021-08-10 08:00] VITALS: BP 108/56
[2021-08-10] MEDS: CHOLECALCIFEROL 1,000 UNIT TABLET (VIT D3) PO SCH (08:36)
[2021-08-10] MEDS: ACETAMINOPHEN 325 MG TABLET PO SCH (08:36)
[2021-08-10] MEDS: FERROUS SULFATE (325 MG) 325 MG/TAB TABLET PO SCH (08:36)
[2021-08-10] MEDS: MULTIVIT W/MINERALS 1 TAB TABLET PO SCH (08:36)
[2021-08-10] MEDS: POTASSIUM CHLORIDE 20 MEQ POWDER PACKET PO SCH ×3 (08:36→10:41)
[2021-08-10] MEDS: ASCORBIC ACID 500 MG TABLET PO SCH (08:36)
[2021-08-10] MEDS: METOPROLOL TARTRATE 25 MG TABLET PO SCH ×3 (08:37→16:01)
[2021-08-10] MEDS: DIGOXIN 0.125 MG TABLET PO SCH (08:38)
[2021-08-10] MEDS: APIXABAN 2.5 MG TABLET PO SCH ×2 (08:40→21:38)
[2021-08-10] MEDS: POLYVINYL ALCOHOL 15 ML BOTTLE EACHEYE SCH ×3 (08:41→16:01)
[2021-08-10] MEDS: PROSOURCE / PROSTAT (PYXIS) 30 ML UDC PO SCH ×3 (08:42→16:01)
[2021-08-10] MEDS: DAKINS QUARTER STRENGTH (0.125%) 480 ML BOTTLE TOP SCH (08:43)
[2021-08-10 12:00] VITALS: BP 106/58
[2021-08-10] MEDS: HYDROCODONE/APAP 5/325MG TABLET PO PRN ×2 (13:14→20:34)
[2021-08-10 16:03] VITALS: BP 121/63
--- NOTE | 2021-08-10 17:57 | NUR ---
RN NOTES INFORMED DR. CARCAMO ABOUT PATIENT'S BLOOD SUGAR EARLY IN AM W/ PHARMACY REC OF D/C MIESHA; DR. CARCAMO AGREED W/ ORDER NOTED.
--- NOTE | 2021-08-10 19:21 | NUR ---
TELE OPENING NOTE PATIENT IN BED ASLEEP. A/OX1. NO S/S OF DISTRESS; BREATHING ON NC 2L W/O DIFFICULTY. RH #22 INTACT AND PATENT W/ NS 100 ML/HR. TELE MONITOR REVEALS AFIB 80, CONTROLLED. SAFETY MEASURES IN PLACE: BED AT LOWEST POSITION, LOCKED, RAILS UP X3, CALL SKINNER WITHIN REACH. WILL CONTINUE TO MONITOR PATIENT.
[2021-08-10 20:00] VITALS: BP 95/53
[2021-08-10] MEDS: VANCOMYCIN HCL 0.75 GM in IV D5W 250 ML IV SCH (21:38)
[2021-08-11] VITALS: BP 108/66
--- NOTE | 2021-08-11 01:25 | NUR ---
RN NOTE PATIENT WAS FOUND TO HAVE REMOVED HIS IV ACCESS. ALL IV FEATURES ACCOUNTED FOR INCLUDING CATH. NO ACTIVE BLEEDING. PRESSURE DRESSING APPLIED. NEW IV #22 RAC INSERTED SUCCESSFULLY. PATIENT STABLE; WILL CONTINUE TO MONITOR PATIENT.
[2021-08-11] MEDS: PIPERACILLIN /TAZOBACTAM 3.375 G in IV D5W 50 ML IV SCH ×4 (02:29→20:21)
[2021-08-11 04:00] VITALS: BP 134/72
[2021-08-11] MEDS: IV NS 0.9% 1,000 ML IV SCH ×3 (04:14→23:33)
[2021-08-11] MEDS ORDERED: LORAZEPAM INJ 2 MG/ML VIAL IV PRN (04:30)
[2021-08-11] MEDS: BLOOD SUGAR DIAGNOSTIC 1 EACH STRIP IN SCH ×4 (06:35→22:00)
[2021-08-11] MEDS: INSULIN REGULAR, HUMAN 100 UNIT/ML 3 ML VIAL SQ PRN ×3 (06:35→17:57)
--- NOTE | 2021-08-11 06:50 | NUR ---
TELE CLOSING NOTE PATIENT AWAKE IN BED. A/OX1-2. NO S/S OF DISTRESS, BREATHING ON 2L NC W/O DIFFICULTY. RAC #22 INTACT AND PATENT W/ NS 100ML/HR. TELE MONITOR REVEALS AFIB 99, CONTROLLED. SAFETY MEASURES IN PLACE: BED AT LOWEST LEVEL, LOCKED, RAILS UP X3, CALL SKINNER WITHIN REACH. WILL ENDORSE TO FOLLOWING SHIFT FOR MARISSA.
--- NOTE | 2021-08-11 07:19 | NUR ---
RN NOTE PATIENT HAD AN ORDER FOR ATIVAN. VILE WAS WITHDRAWN FROM PIXES, WITNESS FOR WASTE WAS RECORDED, AND IN RUSHING DUE TO THE URGENCY OF THE SITUATION HAD DISPOSED OF THE VILE BEFORE SCANNING. IN ADMINISTERING MEDICATION ITEM WAS CLICKED IN eMAR TO RECORD. HERBERT, FROM PHARMACY, WAS CONTACTED AND ALERTED THIS MORNING.
[2021-08-11 07:25] LABS: BASOPHILS # (AUTO) 0.1 K/uL (0.0-0.2); EOSINOPHILS % (AUTO) 4.1 % (0.0-6.0); HEMATOCRIT 27 % (39-51); HEMOGLOBIN 9.2 g/dL (13.5-17.5); LYMPHOCYTES # (AUTO) 1.8 K/uL (0.8-4.8); LYMPHOCYTES % (AUTO) 22.5 % (20.0-44.0); MEAN CORPUSCULAR HGB CONC 33 g/dl (31.0-36.0); MEAN CORPUSCULAR VOLUME 93 fL (80-96); MONOCYTES # (AUTO) 0.6 K/uL (0.1-1.30); MONOCYTES % (AUTO) 7.4 % (2.0-12.0); NEUTROPHILS # (AUTO) 5.3 K/uL (1.8-8.9); PLATELET COUNT (AUTO) 256 K/uL (150-450); RED BLOOD CELL COUNT(AUTO) 2.95 MIL/uL (4.5-6.0); WHITE BLOOD COUNT (AUTO) 8.1 K/uL (4.3-11.0)
--- NOTE | 2021-08-11 08:10 | NUR ---
RN OPENING NOTE PATIENT IN BED RESTING,AWAKE, A/O X 1-2, NO S/S OF PAIN NOTED AT THIS TIME. ON 2L OXYGEN VIA NC, NO DISTRESS OR SHORTNESS OF BREATH NOTED. IV ACCESS RAC #22G, INTACT, PATENT AND FLUSHING WELL. PATIENT WITH EXTERNAL LEGAL DEPARTMENT MANAGER WITH CURRENT READING OF AFIB AND HR OF 89. FALL AND SAFETY MEASURES IN PLACE, BED ALARM ON, BED IN LOW AND LOCK POSITION, CALL LIGHT AND TABLE WITHIN EASY REACH, SIDE RAILS UP X2. WILL CONTINUE TO MONITOR.
[2021-08-11 08:22] LABS: CALCIUM, SERUM 8.5 mg/dL (8.5-10.1); CARBON DIOXIDE 22 mmol/L (21-32); CHLORIDE 109 mmol/L (98-107); CREATININE 1.3 mg/dL (0.6-1.3); GLUCOSE 129 mg/dL (74-106); PHOSPHORUS 2.9 mg/dL (2.5-4.9); POTASSIUM 3.7 mmol/L (3.5-5.1); SODIUM SERUM 140 mmol/L (136-145); UREA NITROGEN, BLOOD 26 mg/dL (7-18)
[2021-08-11 08:41] VITALS: BP 124/69
[2021-08-11] MEDS: ACETAMINOPHEN 325 MG TABLET PO SCH (10:15)
[2021-08-11] MEDS: CHOLECALCIFEROL 1,000 UNIT TABLET (VIT D3) PO SCH (10:15)
[2021-08-11] MEDS: MULTIVIT W/MINERALS 1 TAB TABLET PO SCH (10:15)
[2021-08-11] MEDS: FERROUS SULFATE (325 MG) 325 MG/TAB TABLET PO SCH (10:15)
[2021-08-11] MEDS: ASCORBIC ACID 500 MG TABLET PO SCH (10:15)
[2021-08-11] MEDS: DIGOXIN 0.125 MG TABLET PO SCH (10:16)
[2021-08-11] MEDS: METOPROLOL TARTRATE 25 MG TABLET PO SCH ×3 (10:17→17:31)
[2021-08-11] MEDS: APIXABAN 2.5 MG TABLET PO SCH ×2 (10:18→22:34)
[2021-08-11] MEDS: PROSOURCE / PROSTAT (PYXIS) 30 ML UDC PO SCH ×3 (10:19→17:28)
[2021-08-11] MEDS: POLYVINYL ALCOHOL 15 ML BOTTLE EACHEYE SCH ×3 (10:19→17:29)
[2021-08-11] MEDS: DAKINS QUARTER STRENGTH (0.125%) 480 ML BOTTLE TOP SCH (10:20)
[2021-08-11] MEDS ORDERED: DOXY-326 PO (13:01)
[2021-08-11] MEDS ORDERED: SODI473S8 TOP (13:01)
--- NOTE | 2021-08-11 19:40 | NUR ---
RN CLOSING NOTE PATIENT IN BED RESTING,AWAKE, A/O X 1-2, NO S/S OF PAIN NOTED AT THIS TIME. ON 2L OXYGEN VIA NC, NO DISTRESS OR SHORTNESS OF BREATH NOTED. IV ACCESS RAC #22G, INTACT, PATENT AND FLUSHING WELL. PATIENT WITH EXTERNAL BILLING TYPIST WITH CURRENT READING OF AFIB. ALL SCHEDULE MEDICATIONS ADMINISTERED. FALL AND SAFETY MEASURES IN PLACE, BED ALARM ON, BED IN LOW AND LOCK POSITION, CALL LIGHT AND TABLE WITHIN EASY REACH, SIDE RAILS UP X2. WILL ENDORSE TO ETL DEVELOPER..
[2021-08-11 20:00] VITALS: BP 130/75
--- NOTE | 2021-08-11 20:00 | NUR ---
HONEY LIQUEFIER OPENING NOTE: RECEIVED PATIENT SLEEP IN BED COMFORTABLY, AROUSABLE TO VERBAL STIMULI, BED IN LOW POSITION, CALL LIGHTS WITHIN REACH, NO COMPLAIN OF PAIN AND DISCOMFORT AT THIS TIME ON O2 INHALATION AT 2LPM SATURATING WELL, NO SOB WAS OBSERVED, ON TELE MONITORING AFIB-78., WITH IV LINE AT RAC#22 WITH ONGOING NSS@100 ML PER HOUR INFUSING WELL, PATIENT KEPT CLEAN AND DRY ALL NEEDS MET WILL CONTINUE TO MONITOR
--- NOTE | 2021-08-11 20:00 | NUR ---
RN NOTES: PATIENT REFUSED VANCO TROUGH OFFERED TWICE BUT REFUSED AND STARTED TO GET AGITATED MOST RECENT VANCO TROUGH RESULT IS 18
[2021-08-11 20:12] VITALS: BP 122/63
[2021-08-11] MEDS: VANCOMYCIN HCL 0.75 GM in IV D5W 250 ML IV SCH (21:54)
[2021-08-11] MEDS: *INSULIN REGULAR(HUMULIN R)HUM 100 UNIT/ML VIAL SQ PRN (23:17)
[2021-08-12 00:30] VITALS: BP 120/69
[2021-08-12] MEDS: PIPERACILLIN /TAZOBACTAM 3.375 G in IV D5W 50 ML IV SCH ×2 (01:53→08:21)
[2021-08-12 04:00] VITALS: BP 107/55
[2021-08-12 04:35] VITALS: BP 107/55
--- NOTE | 2021-08-12 05:51 | NUR ---
BOBBIN DOFFER CLOSING NOTES: PATIENT SLEEP IN BED COMFORTABLY, BED IN LOW POSITION, CALL LIGHTS WITHIN REACH, NO COMPLAIN OF PAIN AND DISCOMFORT AT THIS TIME, PATIENT ON TELE MONITORING AFIB 79, ON O2 INHALATION AT 2LPM SATURATING WELL, WITH ONGOING IV LINE AT RAC#22 WITH NSS@100 ML PER HOUR INFUSING WELL, SKIN ASSESSMENT DONE CLEANSE AND DOCUMENTED, REPOSITION Q2H, PATIENT KEPT CLEAN AND DRY ALL NEEDS MET ENDORSE TO INCOMING SHIFT.
[2021-08-12 06:02] LABS: BASOPHILS # (AUTO) 0.1 K/uL (0.0-0.2); EOSINOPHILS % (AUTO) 3.5 % (0.0-6.0); HEMATOCRIT 27 % (39-51); LYMPHOCYTES # (AUTO) 1.7 K/uL (0.8-4.8); LYMPHOCYTES % (AUTO) 24.6 % (20.0-44.0); MEAN CORPUSCULAR HGB CONC 34 g/dl (31.0-36.0); MEAN CORPUSCULAR VOLUME 92 fL (80-96); MONOCYTES # (AUTO) 0.6 K/uL (0.1-1.30); MONOCYTES % (AUTO) 8.3 % (2.0-12.0); NEUTROPHILS # (AUTO) 4.4 K/uL (1.8-8.9); NEUTROPHILS % (AUTO) 62.6 % (43.0-81.0); PLATELET COUNT (AUTO) 255 K/uL (150-450); RED BLOOD CELL COUNT(AUTO) 2.94 MIL/uL (4.5-6.0); WHITE BLOOD COUNT (AUTO) 7.1 K/uL (4.3-11.0)
[2021-08-12] MEDS: INSULIN REGULAR, HUMAN 100 UNIT/ML 3 ML VIAL SQ PRN (06:26)
[2021-08-12 06:40] LABS: CALCIUM, SERUM 8.6 mg/dL (8.5-10.1); CREATININE 1.3 mg/dL (0.6-1.3); MAGNESIUM 1.8 mg/dL (1.8-2.4); PHOSPHORUS 2.8 mg/dL (2.5-4.9); POTASSIUM 3.7 mmol/L (3.5-5.1)
--- NOTE | 2021-08-12 07:22 | NUR ---
DIRECTOR OF MIDWIFERY/STAFF MIDWIFE OPENING NOTE: RECEIVED PATIENT ASLEEP IN BED. EASILY AWAKEN TO VERBAL STIMULI. A/OX1. ON O2 INHALATION AT 2LPM VIA NASAL CANNULA, TOLERATING WELL WITH NO SIGNS OF SOB OR RESPIRATORY DISTRESS. ON TELE MONITOR WITH CURRENT READING OF CONTROLLED AFIB WITH HR 71. RAC G#22 INTACT WITH NS RUNNING AT 100ML/HR, INFUSING WELL. SAFETY MEASURES IN PLACE: BED IN LOWEST AND LOCKED POSITION, BED ALARM ON, HOB ELEVATED, CALL LIGHTS WITHIN REACH. WILL CONTINUE TO MONITOR PT.
[2021-08-12] MEDS: BLOOD SUGAR DIAGNOSTIC 1 EACH STRIP IN SCH (07:46)
[2021-08-12 08:00] VITALS: BP 108/62
[2021-08-12] MEDS: CHOLECALCIFEROL 1,000 UNIT TABLET (VIT D3) PO SCH (08:22)
[2021-08-12] MEDS: MULTIVIT W/MINERALS 1 TAB TABLET PO SCH (08:23)
[2021-08-12] MEDS: ASCORBIC ACID 500 MG TABLET PO SCH (08:23)
[2021-08-12] MEDS: FERROUS SULFATE (325 MG) 325 MG/TAB TABLET PO SCH (08:23)
[2021-08-12] MEDS: ACETAMINOPHEN 325 MG TABLET PO SCH (08:23)
[2021-08-12] MEDS: DIGOXIN 0.125 MG TABLET PO SCH (08:23)
[2021-08-12 08:24] VITALS: BP 108/62
[2021-08-12] MEDS: METOPROLOL TARTRATE 25 MG TABLET PO SCH (08:24)
[2021-08-12] MEDS: PROSOURCE / PROSTAT (PYXIS) 30 ML UDC PO SCH (08:28)
[2021-08-12] MEDS: APIXABAN 2.5 MG TABLET PO SCH (08:28)
[2021-08-12] MEDS: DAKINS QUARTER STRENGTH (0.125%) 480 ML BOTTLE TOP SCH (08:30)
[2021-08-12] MEDS: POLYVINYL ALCOHOL 15 ML BOTTLE EACHEYE SCH (08:30)
[2021-08-12] MEDS: IV NS 0.9% 1,000 ML IV SCH (08:31)
--- NOTE | 2021-08-12 09:43 | NUR ---
RN DISCHARGED NOTES PT DISCHARGED TO [facility] IN STABLE CONDITION. PT IS A/O X1. VERBALLY RESPONSIVE BUT CONFUSED. V/S TAKEN, STABLE AND RECORDED. PHOTOS OF SKIN PROBLEMS/ISSUES TAKEN BY PREVIOUS SHIFT RN AND WAS FILED IN PT'S CHART. PT HAS NO BELONGINGS. BASIL CALLED AND INFORMED THAT PT ALREADY PICKED-UP ENROUTE TO SNF. IV ACCESS ON RAC#22 REMOVED, NOTED MINIMAL BLEEDING, DRY PRESSURE DRESSING APPLIED AT SITE. CALLED AND REPORT GIVEN TO WENDY GALLO AND VERBALIZED UNDERSTANDING. REPORT GIVEN TO EMT'S AND HANDED EXIT FOLDER. PT LEFT UNIT AT 0930 VIA GURNEY ACCOMPANIED BY 2 EMT'S FROM [facility]. MD AND CHARGE NURSE AWARE OF DISCHARGE.
== END 2021-08-12 09:20 | DRG 579 ==
LOC: ER 16:56 → MED 21:49 → TELE 08-06 05:54
PROVIDERS: ADMIT Family Medicine; ATTEND Nurse Practitioner Acute Care
PROC: 0KBP0ZZ Excision of Left Hip Muscle, Open Approach (ICD-10-PCS; principal; 2021-08-08)
PROC: 0KBN0ZZ Excision of Right Hip Muscle, Open Approach (ICD-10-PCS; 2021-08-08)
DX: L89.154 Pressure ulcer of sacral region, stage 4 (principal); N17.0 Acute kidney failure with tubular necrosis; N39.0 Urinary tract infection, site not specified; D68.59 Other primary thrombophilia; E44.0 Moderate protein-calorie malnutrition; G93.40 Encephalopathy, unspecified; E87.2 Acidosis; I48.92 Unspecified atrial flutter; E11.51 Type 2 diabetes mellitus with diabetic peripheral angiopathy without gangrene; I12.9 Hypertensive chronic kidney disease with stage 1 through stage 4 chronic kidney disease, or unspecified chronic kidney disease; N18.9 Chronic kidney disease, unspecified; I48.91 Unspecified atrial fibrillation; E11.42 Type 2 diabetes mellitus with diabetic polyneuropathy; E11.22 Type 2 diabetes mellitus with diabetic chronic kidney disease; D63.8 Anemia in other chronic diseases classified elsewhere; Z20.822 Contact with and (suspected) exposure to COVID-19; Z88.8 Allergy status to other drugs, medicaments and biological substances; Z79.4 Long term (current) use of insulin; Z79.899 Other long term (current) drug therapy; Z79.01 Long term (current) use of anticoagulants; E87.5 Hyperkalemia; E11.621 Type 2 diabetes mellitus with foot ulcer; L97.529 Non-pressure chronic ulcer of other part of left foot with unspecified severity; E11.65 Type 2 diabetes mellitus with hyperglycemia; G89.29 Other chronic pain; E88.09 Other disorders of plasma-protein metabolism, not elsewhere classified; M20.40 Other hammer toe(s) (acquired), unspecified foot; F03.90 Unspecified dementia, unspecified severity, without behavioral disturbance, psychotic disturbance, mood disturbance, and anxiety; I35.0 Nonrheumatic aortic (valve) stenosis
CPT/HCPCS: 36415; 71045-TC; 73630-TC; 80048-TC; 80053-TC; 80076-TC; 80202-TC; 82962-TC; 83605-TC; 83735-TC; 84100-TC; 84484-TC; 85025-TC; 85730-TC; 87040-TC; 87081-TC; 92526; 92611-TC; 93926-TC; A6253; A6403; C9803; G0378; J0692; J1815; J2060; J2543; J3370; J7030; J7060

== ENCOUNTER 2021-08-29 18:52 | Emergency (ER) | payer MEDICARE, BC ==
[~2021-08-29] VITALS: Ht 177.8 cm; Wt 54.0 kg
[~2021-08-29 18:52] MED LIST changes: +ACET-2605 PO; +AMIN30LI2 PO; -AMIN887L PO; -ASCO500C17 PO; +ASCO500T10 PO; -CEFT1PIG2 IV; -DEXT15DR6 OP; +DEXT38GE12 PO; +DOXY-326 PO; +GLUC1KIT IM; +POLY15DR40 EACHEYE; -QUERCETIN PO; -Silver Sulfadiazine TP; -VANC750P13 IV
--- NOTE | 2021-08-29 19:00 | NUR ---
JANIYA Ambulife [id number] From [facility] sent for abnormal Labs K+, BUN/Crea high". PT A/OX1. TOLERATING R/A WELL WITH NO SOB. CONNECTED PT TO POX AND MONITOR.
--- NOTE | 2021-08-29 19:21 | NUR ---
STUMP BLOWER AT PT'S BEDSIDE
--- NOTE | 2021-08-29 19:42 | NUR ---
RAC #18G S/L; PATENT AND INTACT. URINE COLLECTED AND SENT TO LAB
--- NOTE | 2021-08-29 19:47 | NUR ---
ODD BUNDLE WORKER AT PT'S BEDSIDE
[2021-08-29 19:58] LABS: CALCIUM, SERUM 8.8 mg/dL (8.5-10.1); CARBON DIOXIDE 28 mmol/L (21-32); CHLORIDE 105 mmol/L (98-107); CREATININE 1.5 mg/dL (0.6-1.3); GLUCOSE 90 mg/dL (74-106); POTASSIUM 5.5 mmol/L (3.5-5.1); SODIUM SERUM 136 mmol/L (136-145); UREA NITROGEN, BLOOD 28 mg/dL (7-18)
[2021-08-29 20:03] LABS: BASOPHILS # (AUTO) 0.1 K/uL (0.0-0.2); EOSINOPHILS % (AUTO) 3.2 % (0.0-6.0); HEMATOCRIT 32 % (39-51); HEMOGLOBIN 10.7 g/dL (13.5-17.5); LYMPHOCYTES # (AUTO) 2.1 K/uL (0.8-4.8); LYMPHOCYTES % (AUTO) 31.5 % (20.0-44.0); MEAN CORPUSCULAR HGB CONC 34 g/dl (31.0-36.0); MEAN CORPUSCULAR VOLUME 92 fL (80-96); MONOCYTES # (AUTO) 0.6 K/uL (0.1-1.30); MONOCYTES % (AUTO) 9.5 % (2.0-12.0); NEUTROPHILS # (AUTO) 3.7 K/uL (1.8-8.9); NEUTROPHILS % (AUTO) 54.8 % (43.0-81.0); PLATELET COUNT (AUTO) 307 K/uL (150-450); RED BLOOD CELL COUNT(AUTO) 3.45 MIL/uL (4.5-6.0); WHITE BLOOD COUNT (AUTO) 6.7 K/uL (4.3-11.0)
[2021-08-29 20:05] LABS: ALANINE AMINOTRANSFERASE 51 U/L (12-78); ALBUMIN 2.3 g/dL (3.4-5.0); ALKALINE PHOSPHATASE 85 U/L (46-116); ASPARTATE AMINOTRANSFERASE 48 U/L (15-37); BILIRUBIN,DIRECT 0.1 mg/dL (0.0-0.2); BILIRUBIN,TOTAL 0.2 mg/dL (0.2-1.0); TOTAL PROTEIN, SERUM 6.5 g/dL (6.4-8.2)
--- NOTE | 2021-08-29 20:41 | NUR ---
DR. MEETA ALMEIDA
[2021-08-29 20:47] LABS: BILIRUBIN,URINE NEGATIVE (NEGATIVE); COLOR,URINE YELLOW (YELLOW); LEUKOCYTE ESTERASE ,URINE NEGATIVE (NEGATIVE); NITRITE, URINE NEGATIVE (NEGATIVE); PH,URINE 6.5 (5.0-8.0); PROTEIN,URINE NEGATIVE (NEGATIVE); UGLUCOSE NEGATIVE (NEGATIVE); UROBILINOGEN,URINE 0.2 EU/dL (0.2)
--- NOTE | 2021-08-29 20:49 | NUR ---
DR. NÚÑEZ SPEAKING TO JUSTA REBOLLAR FOR DR. TIM VIA PHONECALL
[2021-08-29] MEDS ORDERED: FUROSEMIDE 20 MG/2 ML VIAL ONE (20:52)
[2021-08-29] MEDS ORDERED: SODIUM POLYSTYRENE SULFONATE 15 G/60 ML BOTTLE ONE (20:52)
--- NOTE | 2021-08-29 20:58 | NUR ---
[facility] CALLED FOR TRANSPORT BACK TO [facility] ETA @[phone]
[2021-08-29] MEDS: FUROSEMIDE 40 MG/4 ML VIAL IV ONE (21:04)
[2021-08-29] MEDS: SODIUM POLYSTYRENE SULFONATE 15 G/60 ML BOTTLE PO ONE (21:04)
[2021-08-29] MEDS: IV NS 0.9% 1,000 ML BAG IV ONE (21:05)
[2021-08-29 21:09] LABS: BACTERIA,URINE None seen /HPF (None Seen); SQUAMOUS EPITHELIAL CELL,UR None Seen /HPF (None Seen)
--- NOTE | 2021-08-29 21:25 | NUR ---
REPORT GIVEN TO DANIA FROM [facility] FOR MARISSA
--- NOTE | 2021-08-29 22:06 | NUR ---
IV removed. Catheter intact and site benign. Pressure and 4x4 applied to site. No bleeding noted.
--- NOTE | 2021-08-29 22:35 | NUR ---
REPORT GIVEN TO [facility] FOR MARISSA. PT TRANSFERRING TO [facility] VIA [facility] RA
[2021-08-29 22:47] VITALS: BP 105/53
== END 2021-08-29 22:48 ==
LOC: ER 18:55
DX: E87.5 Hyperkalemia (principal); E11.22 Type 2 diabetes mellitus with diabetic chronic kidney disease; I12.9 Hypertensive chronic kidney disease with stage 1 through stage 4 chronic kidney disease, or unspecified chronic kidney disease; N18.9 Chronic kidney disease, unspecified; I48.91 Unspecified atrial fibrillation; Z86.69 Personal history of other diseases of the nervous system and sense organs; Z87.440 Personal history of urinary (tract) infections; Z88.8 Allergy status to other drugs, medicaments and biological substances; Z79.899 Other long term (current) drug therapy
CPT/HCPCS: 36415; 71045; 80048; 80076; 81001; 85025; 93005; 96361; 96374; 99285; J1940; J7030

== ENCOUNTER 2023-06-14 00:30 | Emergency (ER) | payer MEDICARE, BC ==
[~2023-06-14] VITALS: Ht 167.6 cm; Wt 54.0 kg
[2023-06-14] MEDS ORDERED: TDAP [DIPH/PERTUSSIS/TET] 0.5 ML VIAL IM ONE (02:26)
[2023-06-14] MEDS: TDAP [DIPH/PERTUSSIS/TET] 0.5 ML VIAL IM ONE (02:30)
[2023-06-14 04:45] VITALS: BP 92/52; TEMP 98.1; O2SAT 98
== END 2023-06-14 04:46 | disposition home or self-care (01) ==
LOC: ER 00:39
DX: S41.112A Laceration without foreign body of left upper arm, initial encounter (principal); I12.9 Hypertensive chronic kidney disease with stage 1 through stage 4 chronic kidney disease, or unspecified chronic kidney disease; E11.22 Type 2 diabetes mellitus with diabetic chronic kidney disease; N18.9 Chronic kidney disease, unspecified; I48.91 Unspecified atrial fibrillation; Z88.8 Allergy status to other drugs, medicaments and biological substances; Z79.4 Long term (current) use of insulin; Z79.899 Other long term (current) drug therapy; X58.XXXA Exposure to other specified factors, initial encounter; Y93.89 Activity, other specified; Y92.89 Other specified places as the place of occurrence of the external cause; Y99.8 Other external cause status
CPT/HCPCS: 73060-TC; 90715

== ENCOUNTER 2023-12-04 11:36 | Inpatient (IN) | payer MEDICARE, BC ==
[~2023-12-04] VITALS: Ht 167.6 cm; Wt 54.4 kg
[2023-12-04] MEDS: IV NS 0.9% 1,000 ML BAG IV ONE ×2 (12:22→14:30)
[2023-12-04 12:43] LABS: BASOPHILS % (AUTO) 0.2 % (0.0-2.0); EOSINOPHILS % (AUTO) 0.3 % (0.0-6.0); HEMATOCRIT 25 % (39-51); HEMOGLOBIN 7.9 g/dL (13.5-17.5); LYMPHOCYTES # (AUTO) 0.8 K/uL (0.8-4.8); LYMPHOCYTES % (AUTO) 6.2 % (20.0-44.0); MEAN CORPUSCULAR HEMOGLOBIN 30 PG (26.0-33.0); MEAN CORPUSCULAR HGB CONC 32 g/dl (31.0-36.0); MEAN CORPUSCULAR VOLUME 92 fL (80-96); MONOCYTES # (AUTO) 0.3 K/uL (0.1-1.30); MONOCYTES % (AUTO) 2.6 % (2.0-12.0); NEUTROPHILS # (AUTO) 11.2 K/uL (1.8-8.9); NEUTROPHILS % (AUTO) 90.7 % (43.0-81.0); PLATELET COUNT (AUTO) 290 K/uL (150-450); RED BLOOD CELL COUNT(AUTO) 2.68 MIL/uL (4.5-6.0); RED CELL DISTRIBUTION WIDTH 17.4 % (11.5-15.0); WHITE BLOOD COUNT (AUTO) 12.4 K/uL (4.3-11.0)
[2023-12-04 12:55] LABS: INR 1.18 (0.91-1.10)
[2023-12-04 13:03] LABS: CALCIUM, SERUM 7.9 mg/dL (8.5-10.1); CARBON DIOXIDE 23 mmol/L (21-32); CHLORIDE 106 mmol/L (98-107); CREATININE 1.7 mg/dL (0.6-1.3); GLUCOSE 160 mg/dL (74-106); POTASSIUM 5.6 mmol/L (3.5-5.1); SODIUM SERUM 136 mmol/L (136-145); UREA NITROGEN, BLOOD 40 mg/dL (7-18)
[2023-12-04 13:05] LABS: LACTIC ACID 2.8 mmol/L (0.4-2.0)
[2023-12-04 13:08] LABS: ALANINE AMINOTRANSFERASE < 6 U/L (12-78); ALBUMIN 1.9 g/dL (3.4-5.0); ALKALINE PHOSPHATASE 82 U/L (46-116); ASPARTATE AMINOTRANSFERASE 12 U/L (15-37); BILIRUBIN,DIRECT 0.2 mg/dL (0.0-0.2); BILIRUBIN,TOTAL 0.4 mg/dL (0.2-1.0); TOTAL PROTEIN, SERUM 6.3 g/dL (6.4-8.2)
[2023-12-04] MEDS ORDERED: EYEL1KIT TP (13:09)
[2023-12-04] MEDS ORDERED: [UNRECOGNIZED DRUG - CODE] IR (13:09)
[2023-12-04] MEDS ORDERED: PIPERACI/TAZO 3.375GM/D5W 50ML PB IV ONE (13:59)
[2023-12-04] MEDS: PIPERACILLIN /TAZOBACTAM 3.375 G in IV D5W 50 ML IV ONE (14:00)
[2023-12-04 14:02] LABS: APPEARANCE,URINE Cloudy (CLEAR); BILIRUBIN,URINE SMALL (NEGATIVE); BLOOD, URINE Large Ery/uL (NEGATIVE); COLOR,URINE BROWN (YELLOW); KETONES,URINE Trace mg/dL (NEGATIVE); LEUKOCYTE ESTERASE ,URINE Large (NEGATIVE); NITRITE, URINE Positive (NEGATIVE); PROTEIN,URINE >=300 mg/dl (NEGATIVE); UGLUCOSE Negative (NEGATIVE)
[2023-12-04 14:15] LABS: ADD URINE CULTURE YES; BACTERIA,URINE 3+ /HPF (None Seen); RBC,URINE 21-50 /HPF (0-2); WBC,URINE TOO NUMEROUS TO COUN /HPF (0-3)
[2023-12-04 14:16] LABS: SQUAMOUS EPITHELIAL CELL,UR Few /HPF (None Seen)
[2023-12-04] MEDS ORDERED: Z GUARD REMEDY 4 OZ OINT TP PRN (14:30)
[2023-12-04] MEDS ORDERED: MAG HYDROX/AL HYDROX/SIMETH 30 ML UDC PO PRN (14:30)
[2023-12-04] MEDS ORDERED: MAGNESIUM HYDROXIDE 30 ML UDC PO PRN (14:30)
[2023-12-04] MEDS ORDERED: ONDANSETRON HCL/PF 4 MG/2 ML VIAL IVP PRN (14:30)
[2023-12-04] MEDS ORDERED: ACETAMINOPHEN 650 MG/SUPP.RECT RC PRN (14:30)
[2023-12-04 16:00] VITALS: BP 129/101; TEMP 98.4
[2023-12-04] MEDS: VANCOMYCIN 1 GM in IV D5W 250 ML IV ONE (16:27)
[2023-12-04] MEDS: BLOOD SUGAR DIAGNOSTIC 1 EACH STRIP IN SCH (16:53)
[2023-12-04] MEDS ORDERED: Medication Not On Formulary EA (Cran/Vitc/Mannose/Inulin/Brom (Uti-Stat Liquid) 30 ML) PO SCH (17:00)
[2023-12-04] MEDS ORDERED: PIPERACILLIN /TAZOBACTAM 3.375 G in IV D5W 50 ML IV SCH (18:00)
[2023-12-04] MEDS: FERROUS SULFATE (325 MG) 325 MG/TAB TABLET PO SCH (18:15)
[2023-12-04 20:00] VITALS: BP 107/92; TEMP 97.6; O2SAT 95
[2023-12-04] MEDS: IV NS 0.9% 1,000 ML IV PRN (20:23)
[2023-12-04] MEDS: ZOSYN IVPB 2.25 G in IV D5W 50ml IV SCH (20:23)
[2023-12-04] MEDS: APIXABAN 2.5 MG TABLET PO SCH (20:31)
[2023-12-04] MEDS: AMIODARONE 150 MG in IV D5W 100 ML IV ONE (21:55)
[2023-12-04] MEDS: AMIODARONE 150 MG/3 ML VIAL IV ONE ×2 (22:14→22:15)
[2023-12-04] MEDS: AMIODARONE 450 MG in IV D5W 241 ML IV PRN (22:21)
[2023-12-05] VITALS (7 sets, daily range): BP systolic 77–123; BP diastolic 56–110; TEMP 97.7–99.1; O2SAT 86–99
[2023-12-05] MEDS: INSULIN REGULAR, HUMAN 100 UNIT/ML 3 ML VIAL SQ PRN (00:41)
[2023-12-05] MEDS: ACETAMINOPHEN 325 MG TABLET PO PRN (04:38)
[2023-12-05 07:29] LABS: BASOPHILS % (AUTO) 0.2 % (0.0-2.0); EOSINOPHILS % (AUTO) 0.3 % (0.0-6.0); HEMATOCRIT 24 % (39-51); HEMOGLOBIN 7.9 g/dL (13.5-17.5); LYMPHOCYTES # (AUTO) 0.9 K/uL (0.8-4.8); LYMPHOCYTES % (AUTO) 8.3 % (20.0-44.0); MEAN CORPUSCULAR HEMOGLOBIN 30 PG (26.0-33.0); MEAN CORPUSCULAR HGB CONC 33 g/dl (31.0-36.0); MEAN CORPUSCULAR VOLUME 92 fL (80-96); MONOCYTES # (AUTO) 0.5 K/uL (0.1-1.30); MONOCYTES % (AUTO) 4.4 % (2.0-12.0); NEUTROPHILS # (AUTO) 9.3 K/uL (1.8-8.9); NEUTROPHILS % (AUTO) 86.8 % (43.0-81.0); PLATELET COUNT (AUTO) 256 K/uL (150-450); RED BLOOD CELL COUNT(AUTO) 2.62 MIL/uL (4.5-6.0); RED CELL DISTRIBUTION WIDTH 16.9 % (11.5-15.0); WHITE BLOOD COUNT (AUTO) 10.7 K/uL (4.3-11.0)
[2023-12-05 08:15] LABS: CARBON DIOXIDE 20 mmol/L (21-32); CHLORIDE 107 mmol/L (98-107); CREATININE 1.5 mg/dL (0.6-1.3); MAGNESIUM 1.9 mg/dL (1.8-2.4); PHOSPHORUS 2.9 mg/dL (2.5-4.9); POTASSIUM 4.3 mmol/L (3.5-5.1); SODIUM SERUM 139 mmol/L (136-145); UREA NITROGEN, BLOOD 37 mg/dL (7-18)
[2023-12-05 08:24] LABS: GLUCOSE 48 mg/dL (74-106)
[2023-12-05] MEDS: CHOLECALCIFEROL 1,000 UNIT TABLET (VIT D3) PO SCH (08:33)
[2023-12-05] MEDS: MULTIVIT W/MINERALS 1 TAB TABLET PO SCH (08:33)
[2023-12-05] MEDS: ASCORBIC ACID 500 MG TABLET PO SCH (08:33)
[2023-12-05] MEDS: IV NS 0.9% 1,000 ML IV PRN (10:39)
[2023-12-05 11:40] LABS: NEUTROPHILS % (MANUAL) 88 (42-76)
[2023-12-05 11:41] LABS: ANISOCYTOSIS 2+; HYPOCHROMASIA 1+; LYMPHOCYTES % (MANUAL) 8 % (16-48); MONOCYTES % (MANUAL) 4 % (0-11.0); OVALOCYTES 1+; PLATELET ESTIMATE ADEQUATE
[2023-12-05] MEDS: IV NS 0.9% 500 ML BAG IV ONE (11:57)
[2023-12-05] MEDS: DIGOXIN 0.125 MG TABLET PO SCH (12:17)
[2023-12-05] MEDS: VANCOMYCIN 750 MG in IV D5W 250 ML IV SCH (14:54)
[2023-12-05] MEDS: GLUCERNA SHAKE 237 ML CAN PO SCH (16:53)
[2023-12-05] MEDS: CEFEPIME 1 GM in IV D5W 50 ML IV SCH (18:09)
[2023-12-06] VITALS: BP 118/56; TEMP 99.1; O2SAT 99
[2023-12-06 04:00] VITALS: BP 116/72; TEMP 98.9; O2SAT 95
[2023-12-06 06:45] LABS: BASOPHILS % (AUTO) 0.1 % (0.0-2.0); HEMATOCRIT 23 % (39-51); HEMOGLOBIN 7.5 g/dL (13.5-17.5); LYMPHOCYTES # (AUTO) 0.9 K/uL (0.8-4.8); LYMPHOCYTES % (AUTO) 5.3 % (20.0-44.0); MEAN CORPUSCULAR HEMOGLOBIN 30 PG (26.0-33.0); MEAN CORPUSCULAR HGB CONC 32 g/dl (31.0-36.0); MEAN CORPUSCULAR VOLUME 92 fL (80-96); MONOCYTES # (AUTO) 0.7 K/uL (0.1-1.30); NEUTROPHILS # (AUTO) 15.8 K/uL (1.8-8.9); NEUTROPHILS % (AUTO) 90.6 % (43.0-81.0); PLATELET COUNT (AUTO) 276 K/uL (150-450); RED BLOOD CELL COUNT(AUTO) 2.52 MIL/uL (4.5-6.0); RED CELL DISTRIBUTION WIDTH 16.8 % (11.5-15.0); WHITE BLOOD COUNT (AUTO) 17.4 K/uL (4.3-11.0)
[2023-12-06 06:55] LABS: CALCIUM, SERUM 7.7 mg/dL (8.5-10.1); CARBON DIOXIDE 17 mmol/L (21-32); CHLORIDE 109 mmol/L (98-107); CREATININE 1.7 mg/dL (0.6-1.3); GLUCOSE 76 mg/dL (74-106); POTASSIUM 4.3 mmol/L (3.5-5.1); SODIUM SERUM 139 mmol/L (136-145); UREA NITROGEN, BLOOD 38 mg/dL (7-18)
[2023-12-06 08:00] VITALS: BP 112/97; TEMP 98.2; O2SAT 95
[2023-12-06] MEDS: CEFEPIME 2 GM in IV D5W 100 ML IV SCH (09:22)
[2023-12-06 12:00] VITALS: O2SAT 99
[2023-12-06 12:30] LABS: FERRITIN 363 ng/mL (8-388)
[2023-12-06 13:25] LABS: IRON, SERUM 8 ug/dl (50-175); TOTAL IRON BINDING CAPACITY 94 ug/dl (250-450)
[2023-12-06 16:00] VITALS: BP 125/109; TEMP 98.3; O2SAT 97
[2023-12-06 20:00] VITALS: BP 92/54; TEMP 97.9; O2SAT 95
[2023-12-07] VITALS: BP 106/55; TEMP 97.7; O2SAT 97
[2023-12-07 04:00] VITALS: BP 102/58; TEMP 97.7; O2SAT 97
[2023-12-07 07:17] LABS: CALCIUM, SERUM 7.6 mg/dL (8.5-10.1); CARBON DIOXIDE 19 mmol/L (21-32); CHLORIDE 107 mmol/L (98-107); CREATININE 1.8 mg/dL (0.6-1.3); GLUCOSE 143 mg/dL (74-106); POTASSIUM 4.3 mmol/L (3.5-5.1); SODIUM SERUM 136 mmol/L (136-145); UREA NITROGEN, BLOOD 39 mg/dL (7-18)
[2023-12-07 07:31] LABS: BASOPHILS % (AUTO) 0.2 % (0.0-2.0); EOSINOPHILS % (AUTO) 0.3 % (0.0-6.0); HEMATOCRIT 23 % (39-51); HEMOGLOBIN 7.6 g/dL (13.5-17.5); LYMPHOCYTES # (AUTO) 0.9 K/uL (0.8-4.8); MEAN CORPUSCULAR HEMOGLOBIN 30 PG (26.0-33.0); MEAN CORPUSCULAR HGB CONC 33 g/dl (31.0-36.0); MEAN CORPUSCULAR VOLUME 91 fL (80-96); MONOCYTES # (AUTO) 0.6 K/uL (0.1-1.30); MONOCYTES % (AUTO) 4.7 % (2.0-12.0); NEUTROPHILS # (AUTO) 11.6 K/uL (1.8-8.9); NEUTROPHILS % (AUTO) 87.8 % (43.0-81.0); PLATELET COUNT (AUTO) 252 K/uL (150-450); RED BLOOD CELL COUNT(AUTO) 2.54 MIL/uL (4.5-6.0); RED CELL DISTRIBUTION WIDTH 16.6 % (11.5-15.0); WHITE BLOOD COUNT (AUTO) 13.3 K/uL (4.3-11.0)
[2023-12-07 08:00] VITALS: BP 105/65; TEMP 98.6; O2SAT 96
[2023-12-07] MEDS: PANTOPRAZOLE 40 MG TABLET.DR PO SCH (08:43)
[2023-12-07 12:00] VITALS: BP 91/60; TEMP 98.2; O2SAT 98
[2023-12-07] MEDS ORDERED: CEFTRIAXONE 1GM BAG (ER ONLY) 1 GM/50 ML PIGGYBACK IV ONE (12:00)
[2023-12-07] MEDS: CEFEPIME 2 GM in IV D5W 100 ML IV SCH (13:00)
[2023-12-07] MEDS: DAKINS QUARTER STRENGTH (0.125%) 480 ML BOTTLE TOP SCH (13:18)
[2023-12-07 16:00] VITALS: BP 93/61; TEMP 98.8; O2SAT 94
[2023-12-07] MEDS: CEFTRIAXONE 2 G in IV D5W 100 ML IV SCH (17:16)
[2023-12-07 20:00] VITALS: BP 100/60; TEMP 97.5; O2SAT 92
[2023-12-08] VITALS (11 sets, daily range): BP systolic 95–109; BP diastolic 54–69; TEMP 97.5–98.9; O2SAT 92–95
[2023-12-08 06:34] LABS: CALCIUM, SERUM 8.2 mg/dL (8.5-10.1); CARBON DIOXIDE 19 mmol/L (21-32); CHLORIDE 109 mmol/L (98-107); CREATININE 1.5 mg/dL (0.6-1.3); GLUCOSE 82 mg/dL (74-106); POTASSIUM 4.2 mmol/L (3.5-5.1); SODIUM SERUM 138 mmol/L (136-145); UREA NITROGEN, BLOOD 36 mg/dL (7-18)
[2023-12-08 07:39] LABS: BASOPHILS % (AUTO) 0.3 % (0.0-2.0); EOSINOPHILS # (AUTO) 0.1 K/uL (0.0-0.7); EOSINOPHILS % (AUTO) 1.4 % (0.0-6.0); HEMATOCRIT 21 % (39-51); LYMPHOCYTES # (AUTO) 1.3 K/uL (0.8-4.8); LYMPHOCYTES % (AUTO) 15.1 % (20.0-44.0); MEAN CORPUSCULAR HEMOGLOBIN 30 PG (26.0-33.0); MEAN CORPUSCULAR HGB CONC 33 g/dl (31.0-36.0); MEAN CORPUSCULAR VOLUME 90 fL (80-96); MONOCYTES # (AUTO) 0.6 K/uL (0.1-1.30); MONOCYTES % (AUTO) 6.8 % (2.0-12.0); NEUTROPHILS # (AUTO) 6.8 K/uL (1.8-8.9); NEUTROPHILS % (AUTO) 76.4 % (43.0-81.0); PLATELET COUNT (AUTO) 252 K/uL (150-450); RED BLOOD CELL COUNT(AUTO) 2.31 MIL/uL (4.5-6.0); RED CELL DISTRIBUTION WIDTH 16.6 % (11.5-15.0); WHITE BLOOD COUNT (AUTO) 8.9 K/uL (4.3-11.0)
[2023-12-08 07:56] LABS: HEMOGLOBIN 6.9 g/dL (13.5-17.5)
[2023-12-08 08:52] LABS: BASOPHILS % (MANUAL) 0 % (0.0-2.0); EOSINOPHILS % (MANUAL) 1 % (0-4); LYMPHOCYTES % (MANUAL) 16 % (16-48); MONOCYTES % (MANUAL) 3 % (0-11.0); NEUTROPHILS % (MANUAL) 80 (42-76)
[2023-12-08 08:53] LABS: PLATELET ESTIMATE ADEQUATE
[2023-12-09 04:00] VITALS: BP 98/58; TEMP 98.1; O2SAT 96
[2023-12-09 06:43] LABS: BASOPHILS # (AUTO) 0.1 K/uL (0.0-0.2); BASOPHILS % (AUTO) 0.6 % (0.0-2.0); EOSINOPHILS # (AUTO) 0.1 K/uL (0.0-0.7); EOSINOPHILS % (AUTO) 1.5 % (0.0-6.0); HEMATOCRIT 23 % (39-51); HEMOGLOBIN 7.9 g/dL (13.5-17.5); LYMPHOCYTES # (AUTO) 1.4 K/uL (0.8-4.8); LYMPHOCYTES % (AUTO) 16.3 % (20.0-44.0); MEAN CORPUSCULAR HEMOGLOBIN 31 PG (26.0-33.0); MEAN CORPUSCULAR HGB CONC 34 g/dl (31.0-36.0); MEAN CORPUSCULAR VOLUME 91 fL (80-96); MONOCYTES # (AUTO) 0.7 K/uL (0.1-1.30); MONOCYTES % (AUTO) 7.6 % (2.0-12.0); NEUTROPHILS # (AUTO) 6.5 K/uL (1.8-8.9); PLATELET COUNT (AUTO) 231 K/uL (150-450); RED BLOOD CELL COUNT(AUTO) 2.57 MIL/uL (4.5-6.0); RED CELL DISTRIBUTION WIDTH 15.8 % (11.5-15.0); WHITE BLOOD COUNT (AUTO) 8.7 K/uL (4.3-11.0)
[2023-12-09 06:57] LABS: CALCIUM, SERUM 7.6 mg/dL (8.5-10.1); CARBON DIOXIDE 21 mmol/L (21-32); CHLORIDE 110 mmol/L (98-107); CREATININE 1.3 mg/dL (0.6-1.3); GLUCOSE 82 mg/dL (74-106); MAGNESIUM 1.7 mg/dL (1.8-2.4); PHOSPHORUS 2.2 mg/dL (2.5-4.9); POTASSIUM 3.9 mmol/L (3.5-5.1); SODIUM SERUM 139 mmol/L (136-145); UREA NITROGEN, BLOOD 30 mg/dL (7-18)
[2023-12-09 12:00] VITALS: BP 112/72; TEMP 98.2; O2SAT 96
[2023-12-09] MEDS: MAGNESIUM OXIDE 400 MG TABLET PO ONE (12:40)
[2023-12-09 14:01] LABS: HIV-1 p24 ANTIGEN NON REACTIVE (NONREACTIVE); HIV-1/2 ANTIBODY NON REACTIVE (NONREACTIVE)
[2023-12-09 15:37] VITALS: O2SAT 98
[2023-12-09] MEDS: SENNOSIDES/DOCUSATE SODIUM 1 TAB TABLET PO SCH (15:39)
[2023-12-09] MEDS: K PHOS NEUTRAL 250 MG TABLET PO ONE (17:20)
[2023-12-09 20:00] VITALS: BP 103/60; TEMP 98.1; O2SAT 98
[2023-12-09] MEDS: POLYETHYLENE GLYCOL 3350 17 GM POWD.PACK PO SCH (22:14)
[2023-12-10 04:00] VITALS: BP 101/53; TEMP 98.5; O2SAT 98
[2023-12-10 06:01] VITALS: O2SAT 98
[2023-12-10 06:24] LABS: BASOPHILS # (AUTO) 0.1 K/uL (0.0-0.2); BASOPHILS % (AUTO) 0.6 % (0.0-2.0); EOSINOPHILS # (AUTO) 0.1 K/uL (0.0-0.7); EOSINOPHILS % (AUTO) 1.4 % (0.0-6.0); HEMATOCRIT 24 % (39-51); HEMOGLOBIN 8.1 g/dL (13.5-17.5); LYMPHOCYTES # (AUTO) 1.7 K/uL (0.8-4.8); LYMPHOCYTES % (AUTO) 18.2 % (20.0-44.0); MEAN CORPUSCULAR HEMOGLOBIN 31 PG (26.0-33.0); MEAN CORPUSCULAR HGB CONC 34 g/dl (31.0-36.0); MEAN CORPUSCULAR VOLUME 91 fL (80-96); MONOCYTES # (AUTO) 0.6 K/uL (0.1-1.30); MONOCYTES % (AUTO) 6.9 % (2.0-12.0); NEUTROPHILS # (AUTO) 6.8 K/uL (1.8-8.9); NEUTROPHILS % (AUTO) 72.9 % (43.0-81.0); PLATELET COUNT (AUTO) 260 K/uL (150-450); RED BLOOD CELL COUNT(AUTO) 2.64 MIL/uL (4.5-6.0); WHITE BLOOD COUNT (AUTO) 9.4 K/uL (4.3-11.0)
[2023-12-10 06:44] LABS: CALCIUM, SERUM 7.6 mg/dL (8.5-10.1); CARBON DIOXIDE 25 mmol/L (21-32); CHLORIDE 110 mmol/L (98-107); CREATININE 1.1 mg/dL (0.6-1.3); MAGNESIUM 1.9 mg/dL (1.8-2.4); PHOSPHORUS 2.4 mg/dL (2.5-4.9); POTASSIUM 4.4 mmol/L (3.5-5.1); SODIUM SERUM 141 mmol/L (136-145); UREA NITROGEN, BLOOD 26 mg/dL (7-18)
[2023-12-10 07:16] LABS: GLUCOSE 47 mg/dL (74-106)
[2023-12-10] MEDS: DEXTROSE 50%-WATER 50 ML DISP.SYRIN IV PRN (07:20)
[2023-12-10 12:00] VITALS: TEMP 98
[2023-12-10 16:00] VITALS: BP 120/68; TEMP 98.8; O2SAT 97
[2023-12-10] MEDS: K PHOS NEUTRAL 250 MG TABLET PO ONE (16:01)
[2023-12-10 17:59] LABS: OCCULT BLOOD STOOL POSITIVE (NEGATIVE)
[2023-12-10 21:45] VITALS: BP 109/60; TEMP 98.3; O2SAT 100
[2023-12-11 06:23] VITALS: BP 121/85; TEMP 97.9; O2SAT 100
[2023-12-11 10:12] VITALS: O2SAT 100
[2023-12-11 12:00] VITALS: BP 100/78; TEMP 98.2; O2SAT 98
[2023-12-11 20:00] VITALS: BP 104/58; TEMP 98.1; O2SAT 100
[2023-12-12 04:00] VITALS: BP 111/71; TEMP 98; O2SAT 100
[2023-12-12 08:00] VITALS: BP 123/53; TEMP 98; O2SAT 97
[2023-12-12 14:00] LABS: CARBON DIOXIDE 22 mmol/L (21-32); CHLORIDE 106 mmol/L (98-107); GLUCOSE 192 mg/dL (74-106); POTASSIUM 4.1 mmol/L (3.5-5.1); SODIUM SERUM 136 mmol/L (136-145); UREA NITROGEN, BLOOD 20 mg/dL (7-18)
[2023-12-12 16:00] VITALS: BP 99/56; TEMP 98.3; O2SAT 96
[2023-12-12 20:00] VITALS: BP 98/68; TEMP 97.5; O2SAT 93; O2SAT 95
[2023-12-13 04:00] VITALS: BP 111/80; TEMP 98.6; O2SAT 94
[2023-12-13 06:37] LABS: BASOPHILS # (AUTO) 0.1 K/uL (0.0-0.2); BASOPHILS % (AUTO) 0.6 % (0.0-2.0); EOSINOPHILS # (AUTO) 0.2 K/uL (0.0-0.7); EOSINOPHILS % (AUTO) 1.5 % (0.0-6.0); HEMATOCRIT 28 % (39-51); HEMOGLOBIN 9.1 g/dL (13.5-17.5); LYMPHOCYTES # (AUTO) 1.9 K/uL (0.8-4.8); LYMPHOCYTES % (AUTO) 16.9 % (20.0-44.0); MEAN CORPUSCULAR HEMOGLOBIN 30 PG (26.0-33.0); MEAN CORPUSCULAR HGB CONC 33 g/dl (31.0-36.0); MEAN CORPUSCULAR VOLUME 93 fL (80-96); MONOCYTES # (AUTO) 0.6 K/uL (0.1-1.30); MONOCYTES % (AUTO) 5.5 % (2.0-12.0); NEUTROPHILS # (AUTO) 8.6 K/uL (1.8-8.9); NEUTROPHILS % (AUTO) 75.5 % (43.0-81.0); PLATELET COUNT (AUTO) 327 K/uL (150-450); RED BLOOD CELL COUNT(AUTO) 3.02 MIL/uL (4.5-6.0); RED CELL DISTRIBUTION WIDTH 16.9 % (11.5-15.0); WHITE BLOOD COUNT (AUTO) 11.3 K/uL (4.3-11.0)
[2023-12-13 07:09] LABS: CALCIUM, SERUM 8.1 mg/dL (8.5-10.1); CARBON DIOXIDE 30 mmol/L (21-32); CHLORIDE 104 mmol/L (98-107); CREATININE 0.9 mg/dL (0.6-1.3); GLUCOSE 171 mg/dL (74-106); PHOSPHORUS 2.2 mg/dL (2.5-4.9); POTASSIUM 4.2 mmol/L (3.5-5.1); SODIUM SERUM 136 mmol/L (136-145); UREA NITROGEN, BLOOD 17 mg/dL (7-18)
[2023-12-13 08:00] VITALS: BP 108/67; TEMP 97.7; O2SAT 96
[2023-12-13] MEDS: K PHOS NEUTRAL 250 MG TABLET PO ONE (15:56)
[2023-12-13 16:00] VITALS: BP 108/55; TEMP 98.2; O2SAT 95
== END 2023-12-13 16:45 | DRG 853 ==
LOC: ER 11:45 → TELE1 14:46 → TELE-TD 22:02 → TELE1 12-05 09:24 → MEDSG1 12-08 11:20
PROVIDERS: ADMIT Nurse Practitioner Acute Care; ATTEND Nurse Practitioner Family
PROC: 0KBP0ZZ Excision of Left Hip Muscle, Open Approach (ICD-10-PCS; principal; 2023-12-08)
PROC: 0KBN0ZZ Excision of Right Hip Muscle, Open Approach (ICD-10-PCS; 2023-12-08)
PROC: 30233N1 Transfusion of Nonautologous Red Blood Cells into Peripheral Vein, Percutaneous Approach (ICD-10-PCS; 2023-12-08)
PROC: 05HD33Z Insertion of Infusion Device into Right Cephalic Vein, Percutaneous Approach (ICD-10-PCS; 2023-12-11)
PROC: B54MZZA Ultrasonography of Right Upper Extremity Veins, Guidance (ICD-10-PCS; 2023-12-11)
DX: A40.1 Sepsis due to streptococcus, group B (principal); E43 Unspecified severe protein-calorie malnutrition; G93.41 Metabolic encephalopathy; L89.154 Pressure ulcer of sacral region, stage 4; I21.A1 Myocardial infarction type 2; N17.0 Acute kidney failure with tubular necrosis; R65.21 Severe sepsis with septic shock; I13.0 Hypertensive heart and chronic kidney disease with heart failure and stage 1 through stage 4 chronic kidney disease, or unspecified chronic kidney disease; E87.20 Acidosis, unspecified; N13.6 Pyonephrosis; Z68.1 Body mass index [BMI] 19.9 or less, adult; Z16.24 Resistance to multiple antibiotics; N18.9 Chronic kidney disease, unspecified; I50.9 Heart failure, unspecified; L98.429 Non-pressure chronic ulcer of back with unspecified severity; E11.22 Type 2 diabetes mellitus with diabetic chronic kidney disease; E86.9 Volume depletion, unspecified; Z79.01 Long term (current) use of anticoagulants; Z79.4 Long term (current) use of insulin; Z88.6 Allergy status to analgesic agent; Z86.718 Personal history of other venous thrombosis and embolism; E88.09 Other disorders of plasma-protein metabolism, not elsewhere classified; E78.5 Hyperlipidemia, unspecified; E83.51 Hypocalcemia; E87.5 Hyperkalemia; F03.90 Unspecified dementia, unspecified severity, without behavioral disturbance, psychotic disturbance, mood disturbance, and anxiety; Z20.822 Contact with and (suspected) exposure to COVID-19; B96.20 Unspecified Escherichia coli [E. coli] as the cause of diseases classified elsewhere; E11.51 Type 2 diabetes mellitus with diabetic peripheral angiopathy without gangrene; D63.8 Anemia in other chronic diseases classified elsewhere; L89.896 Pressure-induced deep tissue damage of other site; I35.0 Nonrheumatic aortic (valve) stenosis; S71.112A Laceration without foreign body, left thigh, initial encounter; X58.XXXA Exposure to other specified factors, initial encounter; Y93.9 Activity, unspecified; Y92.129 Unspecified place in nursing home as the place of occurrence of the external cause; M24.574 Contracture, right foot; M24.575 Contracture, left foot; N32.0 Bladder-neck obstruction; I48.0 Paroxysmal atrial fibrillation
CPT/HCPCS: 36415; 71045-TC; 76770-TC; 80048-TC; 80076-TC; 81001; 82272-TC; 82607-TC; 82728-TC; 82962-TC; 83540-TC; 83605-TC; 83735-TC; 84100-TC; 84484-TC; 85025-TC; 85045-TC; 85730-TC; 86850-TC; 87040-TC; 87081-TC; 87086-TC; 87186-TC; 87806; 92526; 92611-TC; 93307-TC; 93971-TC; 94762-TC; 94799-TC; 97110-TC; 97530-TC; A4223; A6253; A6403; G0378; J0282; J0692; J0696; J1815; J2543; J3370; J3371; J7030; J7040; J7050; J7060; P9016